=== PATIENT | male | born 1950 | race Caucasian/White ===

== ENCOUNTER 2020-08-29 11:49 | Outpatient (CLI) | payer MEDICARE, SELFPAY ==
--- NOTE | ~2020-08-29 | XR_ITS ---
XR_CERV2-3V_CR DATE: 08/29/2020 12:11 INDICATION: Neck pain. Limited range of motion. TECHNIQUE: AP, open-mouth, lateral views COMPARISON: None FINDINGS: There is straightening of the cervical spine. C1 and C2 are normally aligned and the odontoid process is intact. No fracture or dislocation, locked facet or prevertebral soft tissue swelling. There is severe degenerative disc disease at C6-7. The remaining cervical interspaces are well preser candace. IMPRESSION: Straightening Severe degenerative disc disease at C6-7 Reviewed, dictated and finalized at [facility]. Reviewed, dictated and finalized at location B.
== END 2020-08-29 11:50 | disposition home or self-care (01) ==
LOC: CHSIMG 11:51
PROVIDERS: PCP Internal Medicine; Visit Provider Internal Medicine
DX: M54.2 Cervicalgia (principal)
CPT/HCPCS: 72040

== ENCOUNTER 2020-09-08 07:37 | Outpatient (CLI) | payer MEDICARE, SELFPAY ==
--- NOTE | ~2020-09-08 | MR_ITS ---
EXAMINATION: MR cervical spine wo con EXAM DATE: 09/08/2020 08:24 INDICATION: Cervicalgia. TECHNIQUE: Multi-sequential, multiplanar MR images of the cervical spine were obtained without contra st. Axial T2, axial T2 MERGE sequence. Sagittal T1, T2, T2 fat saturation images also obtained. Com parison is made to prior examination from 02/12/2019. FINDINGS: Significant improvement in previously seen numerous bone marrow lesions, probably followin g treatment for hematological malignancy, clinical correlation. There is moderate disc disease at C6- 7, mild disc disease at other cervical levels. The vertebral bodies are aligned in the AP dimension. The spinal cord signal intensity and intrinsic morphology is normal. Cervicomedullary junction is nor mal in appearance. Paraspinal soft tissue is unremarkable. Level by level evaluation: C2-C3: Disc does not extend beyond the endplate margin. Uncovertebral joint arthropathy: None. Facet joint arthropathy: Moderate left, mild right. Neural foraminal stenosis: No stenosis. Central canal stenosis: No stenosis. C3-C4: Disc does not extend beyond the endplate margin. Uncovertebral joint arthropathy: Mild bilateral. Facet joint arthropathy: Moderate left, mild to moderate right. Neural foraminal stenosis: Mild bilateral. Central canal stenosis: No stenosis. C4-C5: There is a mild to moderate diffuse disc bulge. Uncovertebral joint arthropathy: Mild bilateral. Facet joint arthropathy: Moderate bilateral. Neural foraminal stenosis: Mild bilateral. Central canal stenosis: Mild . Central canal measures 6-7 mm in mid sagittal AP diameter . C5-C6: There is a mild diffuse disc bulge. Uncovertebral joint arthropathy: Mild bilateral. Facet joint arthropathy: Moderate bilateral. Neural foraminal stenosis: Mild left. Central canal stenosis: Mild. C6-C7: There is a mild diffuse disc bulge. Uncovertebral joint arthropathy: Moderate bilateral. Facet joint arthropathy: Mild bilateral. Neural foraminal stenosis: Moderate left, mild to moderate right. Central canal stenosis: Mild. C7-T1: There is a mild diffuse disc bulge. Uncovertebral joint arthropathy: Mild bilateral. Facet joint arthropathy: Mild to moderate left, mild right. Neural foraminal stenosis: No stenosis. Central canal stenosis: Mild. IMPRESSION: 1. C6-7 moderate left neural foraminal stenosis. Otherwise overall mild to moderate spondylosis. 2. Significant interval improvement in previously seen bone marrow lesions. Reviewed, dictated and finalized at location A. IMPRESSION: 1. C6-7 moderate left neural foraminal stenosis. Otherwise overall mild to mod erate spondylosis. 2. Significant interval improvement in previously seen bone marrow lesions.
== END 2020-09-08 07:38 | disposition home or self-care (01) ==
LOC: CHSIMG 07:38
PROVIDERS: PCP Internal Medicine; Visit Provider Internal Medicine
DX: M54.2 Cervicalgia (principal); C90.00 Multiple myeloma not having achieved remission
CPT/HCPCS: 72141

== ENCOUNTER 2020-09-12 08:48 | Outpatient (RCR) | payer MEDICARE, SELFPAY ==
--- NOTE | 2020-09-12 10:08 | PTOPEVAL ---
Thank you for referring Mikey Melendez to [facility].? The patient is scheduled to be seen for therapy? __2__x/week for 8 visits. Please review, sign, date and return this plan of care LI. I agree with and certify that the following plan of care is medically necessary. Referring Physician Date Admitting Provider: Attending Provider: Brook Walton MD Referring Provider: *PT Outpatient Evaluation Start: 09/12/20 09:04 Freq: Status: Active Protocol: Document 09/12/20 09:05 GIOVANNY (Rec: 09/12/20 10:07 GIOVANNY [id number]) Therapy Assessment Status Assessment Status Assessment Status Evaluation Evaluation Information Problem Subjective Information Pt. reports that he developed Query Text:As Reported By Patient/ pain on the right side of the Family neck about 4 months ago. Pt. states that the pain has not improved and has slightly worsened since initial pain. He reports that pain is most problematic with driving, espeically with turning the head to the right. He states that he purchased an orthopedic pillow and sleep has improved since. He reports that he does experience occassional headaches. He reports that his goal is to increase his neck movement and reduce pain. Diagnostic Tests X-Rays For This Problem Yes: C6-7 spondylosis MRI For This Problem Yes: C6-7 Prior Level of Function Activity Level (Last 3 Months) Occupation retired Hand Dominance Left Activity of Daily Living Ability Independent Indoor/Home Mobility Independent Community Mobility Independent Stairs Ability Independent Functional Cognition (Planning, Shopping Independent , Taking Medications) Cooking Yes Cleaning Yes Laundry Yes Shopping Yes Driving Yes Pain Assessment Timing of Pain Assessment Timing of Pain Assessment Pre-Treatment Pain Scale Pain Scale Used Numeric (1 - 10) Self Report Pain Assessment Right Neck Reported Pain Level 3 Pain Description Aching,Numbness Pain Radiation Right Arm Pain Frequency Continuous Pain Aggravating Factors Exercise/Activity Other Pain Aggravating Factors
--- NOTE | 2020-10-01 09:53 | PTOPEVAL ---
Thank you for referring Mikey Melendez to [facility].? The patient is scheduled to be seen for therapy? __2__x/week for 6 visits. Please review, sign, date and return this plan of care LI. I agree with and certify that the following plan of care is medically necessary. Referring Physician Date Admitting Provider: Attending Provider: Brook Walton MD Referring Provider: *PT Outpatient Evaluation Start: 09/12/20 09:04 Freq: Status: Active Protocol: Document 10/01/20 09:00 GARCIAPHIL (Rec: 10/01/20 09:52 GARCIAMARCO ANTONIOAhsan [email or web address]) Therapy Assessment Status Assessment Status Assessment Status Progress Evaluation Information Problem Diagnosis DJD c-spine, neck pain Subjective Information Pt. notices that his ROM has Query Text:As Reported By Patient/ improved since beginning Family therapy. He reports having a headache today, which he relates to sinuses. He reports Thursday he attempted to lift a ice chest to help a friend move that caused some increase in neck pain. He reports that looking over the shoulder while driving has improved, but still notices turining the head to the right is more difficult than to the left. He reports that he would like to continue with PT to help continue to improve mobility in the neck and decrease pain. Pain Assessment Timing of Pain Assessment Timing of Pain Assessment Pre-Treatment Pain Scale Pain Scale Used Numeric (1 - 10) Self Report Pain Assessment Right Neck Reported Pain Level 2 Pain Description Aching Greatest Pain Intensity 3 Pain Aggravating Factors Exercise/Activity Other Pain Aggravating Factors turning the head to the right Pain Score Pain Score 2: Self Report Interventions Used Interventions Used By Clinicians Electrical Stimulation, Exercise,Heat Cervical and Lumbar ROM Cervical ROM Cervical Lateral Flexion Right (0-50) 17 Query Text:Active in Degrees Cervical Lateral Flexion Left (0-50) 15 Query Text:Active in Degrees Cervical Rotation Right (0-90) 52 Query Text:Active in Degrees Cervical Rotation Left (0-90) 55 Query Text:Active in Degrees Upper Extremity Muscle Strength Testing General Upper Extremity Strength Gross Upper Extremity Strength Comments -bilateral momo
--- NOTE | 2020-10-17 11:19 | PTOPEVAL ---
Thank you for referring Mikey Melendez to [facility].? The patient is scheduled to be seen for therapy? ____x/week for ___ weeks. Please review, sign, date and return this plan of care LI. I agree with and certify that the following plan of care is medically necessary. Referring Physician Date Admitting Provider: Attending Provider: Brook Walton MD Referring Provider: *PT Outpatient Evaluation Start: 09/12/20 09:04 Freq: Status: Active Protocol: Document 10/17/20 10:00 [facility] (Rec: 10/17/20 11:17 [facility] [email or web address]) Therapy Assessment Status Assessment Status Assessment Status Discharge Evaluation Information Problem Diagnosis DJD c-spine, neck pain Additional Evaluation Detail ndi = 16% functional deficits Subjective Information patient reports he feels good Query Text:As Reported By Patient/ this date. he reports he has Family been compliant with his HEP at home. he reports he has had no more than 2/10 pain at worst in over a week. he reports he is back to participating in all home and community activities without limitation. he reports he has even gotten back to playing saxaphone at home. Pain Assessment Timing of Pain Assessment Timing of Pain Assessment Assessment Pain Scale Pain Scale Used Numeric (1 - 10) Self Report Pain Assessment Right Neck Reported Pain Level 2 Greatest Pain Intensity 2 Pain Score Pain Score 2: Self Report Interventions Used Interventions Used By Clinicians Electrical Stimulation, Exercise,Heat Cervical and Lumbar ROM Cervical ROM Cervical Lateral Flexion Right (0-50) 18 Query Text:Active in Degrees Cervical Lateral Flexion Left (0-50) 20 Query Text:Active in Degrees Cervical Rotation Right (0-90) 55 Query Text:Active in Degrees Cervical Rotation Left (0-90) 58 Query Text:Active in Degrees Upper Extremity Range of Motion General Upper Extremity Range of Motion Reason Not Measured WFL/Left,WFL/Right Upper Extremity Muscle Strength Testing General Upper Extremity Strength Gross Upper Extremity Strength Comments 5/5 overall bilateral shoulder and elbow strength General Exercise General Exercises Exercise Description -prom cervical mobility 10 Query Text:Record Sets, Reps, minutes Resistance, and Position -re-evaluation 5 minutes Modalities Electrical Stimulation Neck Stimulation Type Interferential Treatment Duration (minutes) 15 In Conjun
== END 2020-10-17 15:05 | disposition home or self-care (01) ==
LOC: CHSPT 08:48
PROVIDERS: PCP Internal Medicine; Visit Provider Internal Medicine
DX: M47.812 Spondylosis without myelopathy or radiculopathy, cervical region (principal); M54.2 Cervicalgia
CPT/HCPCS: 97014; 97110; 97140; 97161; G0283

== ENCOUNTER 2021-07-16 00:15 | Day surgery (SDC) | payer MEDICARE, SELFPAY ==
[2021-07-01 13:31] VITALS: BMI 26.4
--- NOTE | ~2021-07-16 | XR_ITS ---
EXAMINATION: XR UGIAC wo kub DATE: 07/16/2021 12:01 INDICATION: Hiatal hernia. TECHNIQUE: The patient drank thick barium, gas-producing crystals, and thin barium. Fluoroscopy of th e esophagus, stomach, and proximal small bowel was performed. Fluoroscopy exposure time was 0.7 minut es. The total number of images was 239. Total dose-area product was 2.413 Gy-cm^2. COMPARISON: CT 03/11/2019 FINDINGS: There is no mass or stricture of the esophagus. There is decreased primary and secondary es ophageal peristalsis. No abnormal tertiary waves. There is a large sliding hiatal hernia. The gastroe sophageal junction is 8 cm superior to the diaphragm. The duodenum is normal. There are changes of ve rtebroplasty in mid thoracic spine. IMPRESSION: 1. Large sliding hiatal hernia. 2. Moderate esophageal dysmotility. Reviewed, dictated and finalized at location A.
[2021-07-16 09:37] VITALS: BP 136/83; PULSE 52; RESP 18; TEMP 36.1; O2SAT 98; BMI 25.1
[2021-07-16] MEDS: LACTATED RINGERS 1,000 ML 150 ML IV CONT (09:47)
--- NOTE | 2021-07-16 10:13 | P.PNAN_ITS ---
Anes - Initial Pre Proc Eval Procedure: Operation Date: 07/16/21 11:00 Proposed Procedures p Esophagogastroduodenoscopy - Koby Gan MD Date/Time: 07/16/21 10:13 Surgeon: Koby Gan MD Pre Op Diagnosis: dysphagia Patient Data Age: 71 Gender: M Height: 1.88 m Weight: 88.7 kg Last Vital Signs Temp 36.1 C L 07/16/21 09:37 Pulse 52 L 07/16/21 09:37 Resp 18 07/16/21 09:37 BP 136/83 07/16/21 09:37 Pulse Ox 98 07/16/21 09:37 O2 Del Method Room Air 07/16/21 09:37 Allergies Allergy/AdvReac Type Severity Reaction Status Date / Time Iodinated Contrast Media Allergy Nausea Verified 07/16/21 09:36 shellfish derived Allergy Nausea and Verified 07/16/21 09:36 Vomiting Home Medications Medication Instructions Recorded Confirmed Type amlodipine 10 mg tablet 10 mg PO DAILY 07/01/21 07/01/21 History aspirin 81 mg tablet,delayed 81 mg PO DAILY 07/01/21 07/01/21 History release escitalopram oxalate 20 mg tablet 20 mg PO DAILY 07/01/21 07/01/21 History lenalidomide 10 mg capsule 10 mg PO DAILY 07/01/21 07/01/21 History (Revlimid) pantoprazole 40 mg tablet,delayed 40 mg PO QAM 07/01/21 07/01/21 History release Patient hx anesthesia problems: none Family hx anesthesia problems: none Results Review: All pre-operative results and documents have been reviewed as part of the pre- operative evaluation. [facility] Past Medical History Medical History (Updated 07/16/21 @ 10:21 by Rodrigo Gould MD) HTN (hypertension) Irregular heart beat Surgical History Surgical History (Updated 07/16/21 @ 10:21 by Rodrigo Gould MD) H/O hernia repair H/O stem cell transplant Social History Social History Living arrangements: alone Anes - Eval Final PreProcedure Day of Procedure 07/16/21 10:13 Patient weight: overweight Heart: irregular rhythm (trigeminy pattern) Lungs: clear to auscultation Airway: Mallampati scale class II Neurological: alert and oriented Last oral intake: >/= 8 hours ASA classification: III Emergent: no Anesthetic plan: proceed Anesthesia type and monitoring: general GIVS and standard monitoring Results Review: All pre-operative results and documents have been reviewed as part of the pre- operative evaluation. Informed Consent: The patient's anesthetic plan and its attendant risks and benefits were discussed with the patient/family/POA. Questions were solicited and answers provided to the satisfaction of the patient/family/POA.
--- NOTE | 2021-07-16 10:17 | P.CONGI_ITS ---
Assessment and Plan Assessment and plan (1) Dysphagia: Code(s): R13.10 - Dysphagia, unspecified Status: Acute Assessment and Plan: patient has increasing difficulty with dysphagia. He has noticed significant changes over last 1 month. Plans for EGD esophagus evaluate for esophageal narrowing. Possible for dilatation. Further recommendations will be given after endoscopy. Patient does give a history of GE reflux which likely contributes to his ongoing difficulties. (2) GERD (gastroesophageal reflux disease): Code(s): K21.9 - Gastro-esophageal reflux disease without esophagitis Status: Acute Assessment and Plan: Symptoms of GE reflux appears stable on pantoprazole 40mg p.o. daily. He no longer has heartburn while taking this medication. GI Consult Note Consult date/time: 07/16/21 10:17 Reason for consult: Dysphagia. HPI: Mikey Melendez is a 71 year old male Presents for EGD. Patient reports that he has had occasional difficulty swallowing with food catching in the mid substernal portion of the chest. This has happened over the last several years. Symptoms have worsened over last 1 month. He states that food will catch she is unable to swallow. Typically this is with larger pieces of food. Not with liquids. Patient does have a past history of GE reflux disease. He has been maintained on pantoprazole 40mg p.o. daily because of heartburn for several years. Patient presents today for EGD to evaluate difficulty swallowing. Past medical history is significant for multiple myeloma. He is status post a stem cell transplant several years ago at the [facility]. Currently felt to be in remission. Review of Systems Review of Systems: Review of systems noncontributory. FORMERLY [facility], 1928–1983 Social History Social History Living arrangements: alone Meds Home Medications and Allergies Home Medications Medication Instructions Recorded Confirmed Type amlodipine 10 mg tablet 10 mg PO DAILY 07/01/21 07/01/21 History aspirin 81 mg tablet,delayed 81 mg PO DAILY 07/01/21 07/01/21 History release escitalopram oxalate 20 mg tablet 20 mg PO DAILY 07/01/21 07/01/21 History lenalidomide 10 mg capsule 10 mg PO DAILY 07/01/21 07/01/21 History (Revlimid) pantoprazole 40 mg tablet,delayed 40 mg PO QAM 07/01/21 07/01/21 History release Allergies Allergy/AdvReac Type Severity Reaction Status Date / Time Iodinated Contrast Media Allergy Nausea Verified 07/16/21 09:36 shellfish derived Allergy Nausea and Verified 07/16/21 09:36 Vomiting Vital Signs Vital Signs - 24 hr 07/16/21 09:37 Temperature 96.9 F L Pulse Rate 52 L Respiratory Rate 18 Blood Pressure 136/83 Pulse Oximetry 98 Oxygen Delivery Room Air Exam Narrative: Physical exam reveals patient to be alert. Vital signs stable. HEENT exam is unremarkable. Patient is anicteric. Lungs are clear to auscultation and percussion. Heart is without murmur or extra sounds. Abdominal exam bowel sounds are present soft nontender with no organomegaly.
[2021-07-16] MEDS: BENZOCAINE (*SP) 60 ML SPRAY CAN (HURRICAINE) 1 SPRAY MUCOUS MEM (10:50)
[2021-07-16 11:01] VITALS: BP 98/64; PULSE 68; RESP 20; O2SAT 98
[2021-07-16 11:11] VITALS: BP 108/71; PULSE 72; RESP 20; O2SAT 98
[2021-07-16 11:21] VITALS: BP 117/73; PULSE 70; RESP 22; O2SAT 98
--- NOTE | 2021-07-16 11:27 | SUR.PHASEII ---
PT TAKEN TO RADIOLOGY AFTER RECOVERY, REPORT GIVEN TO YOLIE IN RADIOLOGY, SPOUSE WITH PT.
== END 2021-07-16 11:28 | disposition home or self-care (01) ==
PROVIDERS: PCP Internal Medicine; Visit Provider Internal Medicine Gastroenterology
PROC: 0DJ08ZZ Inspection of Upper Intestinal Tract, Via Natural or Artificial Opening Endoscopic (ICD-10-PCS; CPT 43235; principal; 2021-07-16 11:00)
DX: R13.19 Other dysphagia (principal); K21.9 Gastro-esophageal reflux disease without esophagitis; K44.9 Diaphragmatic hernia without obstruction or gangrene; Z79.82 Long term (current) use of aspirin; I10 Essential (primary) hypertension; I49.9 Cardiac arrhythmia, unspecified
CPT/HCPCS: 43235; 74246; J2704; J7120

== ENCOUNTER 2021-07-29 09:35 | Outpatient (CLI) | payer MEDICARE, SELFPAY ==
--- NOTE | 2021-08-12 08:13 | WPDHOLTEREM ---
Holter/Event Monitor Holter/Event Monitor Date of procedure: 08/12/21 Holter/Event Procedure: Event Monitor Indications: Palpitations Conclusion: 1. 7 day event monitor between 07/29/21-08/09/21. There are 16 available transmissions for analysis. 2. Predominant rhythm is sinus rhythm. HR range 39-146 bpm; average HR 67 bpm. HR at 39 bpm was on 08/03/21 at 07:21. 3. There are intermittent premature supraventricular complexes with total burden of 7%. There are 38 episodes of atrial fibrillation and possibly atrial tachycardia with total burden of 2%. The longest episode is 53 minutes, HR range 51-138 bpm with average of 96 bpm. 4. There are occasional premature ventricular complexes with total burden of 1%. No ventricular tachycardia. 5. No significant pauses greater than 2 seconds. 6. No symptoms available for correlation.
== END 2021-07-29 09:36 | disposition home or self-care (01) ==
PROVIDERS: PCP Internal Medicine; Visit Provider Internal Medicine
DX: I49.9 Cardiac arrhythmia, unspecified (principal)
CPT/HCPCS: 93270

== ENCOUNTER 2021-11-27 11:55 | Outpatient (CLI) | payer MEDICARE, SELFPAY ==
--- NOTE | ~2021-11-27 | XR_ITS ---
EXAMINATION: XR chest 2V DATE: 11/27/2021 12:22 INDICATION: Pneumonia. TECHNIQUE: Frontal and lateral views of the chest were obtained. COMPARISON: Chest 2 views 01/27/2019, chest CT 03/11/2019 FINDINGS: A calcified left lung nodule is consistent with old granulomatous disease. No pleural effus ion or pneumothorax. The heart size is normal. There is a large hiatal hernia. There are prominent pa racardial fat pads. There are changes of vertebroplasty in thoracic spine. IMPRESSION: 1. Large hiatal hernia. Reviewed, dictated and finalized at location A. IMPRESSION: 1. Large hiatal hernia.
[2021-11-27 12:17] LABS: Basophils Absolute Auto 0.02 K/mm3 (0.00-0.10); Basophils Percent Auto 0.5 % (0.0-1.0); Eosinophils Absolute Auto 0.36 K/mm3 (0.02-0.50); Eosinophils Percent Auto 8.5 % (1.0-6.0); Hemoglobin 14.8 g/dL (12.4-15.3); Immature Granulocyte Absolute 0.02 K/mm3 (0.00-0.00); Immature Granulocyte Percent A 0.5 % (0.0-0.0); Immature Reticulocyte Fraction 10.4 % (2.0-16.52); Lymphocytes Absolute Auto 0.89 K/mm3 (1.10-4.50); Mean Corpuscular HGB Conc 33.6 g/dL (32.0-36.0); Mean Corpuscular Hemoglobin 31.6 pg (27.0-31.0); Mean Platelet Volume 11.8 fl (8.7-11.0); Monocytes Absolute Auto 0.36 K/mm3 (0.10-0.90); Monocytes Percent Auto 8.5 % (2.0-11.0); Neutrophils Absolute Auto 2.6 K/mm3 (1.7-7.2); Platelet Count Result 110 K/mm3 (150-420); Red Blood Count 4.68 M/mm3 (4.70-6.10); Red Cell Distribution Width 14.7 % (11.6-14.4); Reticulocyte Hemoglobin Conten 37.2 pg (28.0-35.0); Reticulocyte Percent 1.48 % (0.50-1.50); Reticulocytes Absolute 0.07 M/mm3 (0.02-0.1); White Blood Count 4.2 K/mm3 (4.8-10.8)
[2021-11-27 12:44] LABS: Alanine Aminotransferase 23 U/L (16-63); Albumin Level 3.8 g/dL (3.4-5.0); Alkaline Phosphatase 78 U/L (46-116); Amylase 33 U/L (25-115); Anion Gap 9 mmol/L (8-16); Aspartate Amino Transferase 13 U/L (15-37); Bilirubin,Total 1.2 mg/dL (0.00-1.00); Blood Urea Nitrogen 14 mg/dL (7-18); Calcium 7.9 mg/dL (8.5-10.1); Carbon Dioxide 27 mmol/L (21-32); Chloride 105 mmol/L (98-108); Estimated Glomerular Filt Rate 44; Ferritin 135 ng/mL (26-388); Glucose 119 mg/dL (70-99); Iron 55 ug/dL (65-175); Lipase 47 U/L (73-393); Osmolality Calculated 293 mOsm/kg (285-295); Potassium 3.6 mmol/L (3.5-5.1); Sodium 141 mmol/L (136-145); Total Protein 7.3 g/dL (6.4-8.2)
== END 2021-11-27 11:56 | disposition home or self-care (01) ==
LOC: CHSLAB 11:57
PROVIDERS: PCP Internal Medicine; Visit Provider Internal Medicine
DX: R11.2 Nausea with vomiting, unspecified (principal); R19.7 Diarrhea, unspecified; K92.1 Melena; Z09 Encounter for follow-up examination after completed treatment for conditions other than malignant neoplasm; J18.9 Pneumonia, unspecified organism
CPT/HCPCS: 36415; 71046; 80053; 82150; 82728; 83540; 83690; 85025; 85046

== ENCOUNTER 2021-11-28 12:38 | Outpatient (CLI) | payer MEDICARE, SELFPAY ==
[2021-11-28 12:58] LABS: Occult Blood Negative (Negative)
== END 2021-11-28 12:39 | disposition home or self-care (01) ==
LOC: CHSLAB 12:40
PROVIDERS: PCP Internal Medicine; Visit Provider Internal Medicine
DX: R11.2 Nausea with vomiting, unspecified (principal); R19.7 Diarrhea, unspecified; K92.1 Melena
CPT/HCPCS: 82272; 87045; 87177; 87209; 87324; 87427

== ENCOUNTER 2024-11-02 09:50 | Outpatient (CLI) | payer MEDICARE, SELFPAY ==
[2024-11-02 10:10] LABS: Appearance Urine Clear (Clear); Glucose Urine UA Negative (Negative); Leukocyte Esterase Ur Negative (Negative); Nitrate Urine Negative (Negative); Specific Grav Ur 1.015 (1.010-1.020)
[2024-11-02 10:11] LABS: Hematocrit 41.8 % (37.0-46.0); Hemoglobin 13.9 g/dL (12.4-15.3); Mean Corpuscular HGB Conc 33.3 g/dL (32-36); Mean Corpuscular Hemoglobin 32.4 pg (27.0-31.0); Mean Corpuscular Volume 97.4 fL (78.0-102.0); Platelet Count Result 141 K/mm3 (150-420); Red Blood Count 4.29 M/mm3 (4.70-6.10); White Blood Count 4.5 K/mm3 (4.8-10.8)
[2024-11-02 10:22] LABS: Add Urine Microscopic? NO
[2024-11-02 10:25] LABS: Hemoglobin A1C 4.9 % (<5.7)
[2024-11-02 10:47] LABS: MALB Creatinine Ratio 6.1 mg/g (0-30)
[2024-11-02 10:53] LABS: Alanine Aminotransferase 24 U/L (6-50); Albumin Level 4.1 g/dL (3.5-5.1); Alkaline Phosphatase 75 U/L (38-126); Anion Gap 10 mmol/L (4-12); Aspartate Amino Transferase 28 U/L (17-59); Bilirubin,Total 0.8 mg/dL (0.2-1.3); Blood Urea Nitrogen 10 mg/dL (9-20); Calcium 9.3 mg/dL (8.4-10.2); Carbon Dioxide 27 mmol/L (22-30); Chloride 105 mmol/L (98-107); Cholesterol 175 mg/dL (0-200); Creatine Kinase 84 U/L (55-170); Estimated Glomerular Filt Rate 49; Glucose 98 mg/dL (65-110); HDL Direct 50 mg/dL; Iron 99 ug/dL (49-181); Magnesium 2.2 mg/dL (1.6-2.3); Osmolality Calculated 293 mOsm/kg (285-295); Potassium 3.9 mmol/L (3.4-5.0); Sodium 142 mmol/L (137-145); Total Protein 6.5 g/dL (6.3-8.2); Triglycerides 84 mg/dL (<150)
--- OUTSIDE RECORDS SUMMARY | 2024-11-02 11:01 | XMS_ITS ---
Author Organization [facility] Address [facility] [place] [address] Care Team Providers Care Bacon Slicer Name Role Phone Brook Walton MD Primary Care Provider [phone] Koby Joseph MD Unavailable [phone] Roddy Marroquin MD Unavailable [phone] Yared Walter MD Unavailable [phone] Steven Torres MD Unavailable [phone] Active Problems Patient Care Coordination No te Formatting of this note is d ifferent from the original. BMT Inpatient Care Coordination Overview Diagnosis MM Treatment Plan BMT/IEC/DCI Plan Melph auto cells 10/04 Clinical Trial Inpatient Floor Reason for Admission txp Transplant/IEC Planning Patient Education Completed Pre txp ed done Discharge ed done Consents Done IDMs Insurance Approvals/Issues Discharge Planning Anticipated Discharge Date 10/19 Issue to be Resolved Before Discharge Living Situation/Distance from [place], [place] 1 hour Discharge To Home Caregiver (Anny) Requests sent to Case Management and/or Medical Assistants Post-Discharge Followup/Local Care MAS Requested 10/26 or 10/27 Televisit Consent MyChart active Miscellaneous Notes: 10/16 Bld cx 10/11 (+), plan 2 weeks IV ceftriax @ discharge, cx pending from 10/12 Problem Noted Date Diagnosed Date Depression 11/15/2019 Erectile dysfunction 11/15/2019 Essential hypertension 11/15/2019 GERD (gastroesophageal reflux disease) 0 Hyperlipidemia 11/15/2019 Hypotestosteronism 11/15/2019 Obstructive sleep apnea 11/15/2019 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 Found to have lytic disease of spine on MRI. T5 vertebral body and bone marrow involvement. KRD x 4 cycles. Post treatment PET CT neg. Here for melph auto. Day 0: 10/05/19 , Today is day +15 OI ppx: acyclovir GI ppx: famotidine Pancytopenia secondary to chemotherapy: transfuse per BMT protocol. Neupogen on day +7-+13. Counts recovered. Anxiety Assessment & Plan (10/04/2019 10:09 AM CDT): -Escitalopram Current Treatment and Therapy Plans No current plan information found. Past Treatment and Therapy Plans BMT/ONC IP BLOOD PRODUCTS Plan Name Start Date Discontinue Date Treatment Medications Discontinue Reason Plan Provider COVID-19 - BMT (CMV POSITIVE) ADULT BLOOD AND PLATELET ADMINISTRATION FOR INPATIENT 10/13/2019 2023 No medications scheduled. Automatic discontinuation of dormant plans Eden Holbrook NP Oncology Chemotherapy Treatment Plan Name Start Date Discontinue Date Treatment Medications Discontinue Reason Plan Provider Cycles BMT - Standard Hematopoietic Progenitor Cell Mobilization (Auto) Standard GCSF and Plerixafor (Mozobil) 09/23/2019 10/12/2019 plerixafor (MOZOBIL) Therapy Complete Koby Joseph MD 1 of 1 cycle started Oncology Treatment (2) Plan Name Start Date Discontinue Date Treatment Medications Discontinue Reason Plan Provider Cycles INPT - Melphalan - BMT 10/03/2019 09/30/2021 melphalan (ALKERAN) IVPB in 250 mL Therapy Complete Koby Joseph MD 1 of 1 cycle started PHERESIS Plan Name Start Date Discontinue Date Treatment Medications Discontinue Reason Plan Provider APHERESIS CELLULAR THERAPY CELL COLLECTION 09/27/2019 10/07/2021 No medications scheduled. Therapy Complete Koby Joseph MD Lifetime Dose Tracking * Chemical Lifetime Dose Automatic Entry Manual Entr y Fluoro Time 5.1 minutes 5.1 minutes 0 minutes Air kerma at the reference point (Ka,r) 148.22 mGy 1 48.22 mGy 0 mGy Treatment Summaries Multiple myeloma* Images from the original note were not included. [address] [address] This Survivorship Care Plan is a cancer treatment summary and follow-up plan and is provided to youto keep with your health care records and to share with your primary care provider or any of your doctors and nurses. This summary is a brief record of major aspects of your transplant, not a detailed or comprehensiverecord of your care. We will continue to monitor your post-transplant status and help arrange follow-up care if applicable. You should review this with your cancer provider. Treatment Summary and Survivorship Care Plan for Bone Marrow Transplant General Information Patient name Mikey Melendez (home) Date of 1950 Health Care Providers (Including Names, Institutions) Provider Name: Contact Information: Referring Provider/ Medical Oncologist Roddy Marroquin MD [phone] Primary Care Physician Brook Walton MD [phone] BMT Physician/ Advanced Practice Provider Koby Joseph MD/ Ofelia Saavedra PA-C (Kari) [phone] Field Auditor Dotty Cronin RN [phone] Treatment Summary Cancer Diagnosis Information Multiple myeloma (CMS/HCC) 04/08/2019 Initial Diagnosis Multiple myeloma (CMS/HCC) Patient Active Problem List Diagnosis Multiple myeloma (CMS/HCC) Autologous donor of stem cells Diabetes type 2, controlled (CMS/HCC) Anxiety Depression Erectile dysfunction Essential hypertension GERD (gastroesophageal reflux disease) Hyperlipidemia Hypotestosteronism Obstructive sleep apnea Partial anterior cerebral circulation infarction (CMS/HCC) Seasonal affective disorder (CMS/HCC) Past Medical History: Diagnosis Date Allergic rhinitis Anxiety Arthritis Asthma Depression Diabetes mellitus (CMS/HCC) Gastric reflux Hiatal hernia Hypertension Migraines Pneumonia Sleep apnea CPAP Urinary tract infection Adverse Drug Reaction/Allergies Contrast dye [iodinated contrast media] and Shellfish containing products Family History Cancer Cancer-related family history is not on file. He was adopted. Genetic/hereditaryrisk factor(s) or predisposing condition: N/A Cancer Staging Cancer Staging Multiple myeloma (CMS/HCC) Staging form: Plasma Cell Myeloma and Plasma Cell Disorders, AJCC 8th Edition - Clinical stage from 2019: RISS Stage I (Yntr-2-guaedgyqudxwv (mg/L): 2.7, Albumin (g/dL): 4.9, ISS: Stage I, High-risk cytogenetics: Absent, LDH: Normal) - Signed by Ofelia Saavedra PA on 09/21/2019 Staging comments: Hyperdiploid karyotype, but no high risk cytogenetics. Systemic Therapy (chemotherapy, hormonal therapy, other) Oncology Diagnosis: Multiple myeloma - IgG kappa light chain / oligosectretory Lytic disease of spine on MRI. Biopsy of the T5 vertebral body revealed 90% plasma cell involvement. BM Biopsy with 30 - 40% plasma cells. Mild increase in kappa light chain to 9 but no monoclonal protein by SPEP. Cr 1.31. Normal LDH and albumin. Hyperdiploid karyotype, No evidence of deletion/monosomy of CDKN2C (1p), H84F104/LAMP1 (13q), or TP53 (17p); no evidence of IGH/FGFR3 OR IGH/MAF rearrangements. Oncology Treatment: T5 vertebroplasty 04/01/19. KRD induction x 4 cycles. Cycle 1 initiated 05/23/19. Cycle 4 initiated 08/15/19 with CR (BMBX withoutexcess plasma cells, +FISH, PET negative, SLC normal). Zometa, to continue for a total duration of 2 years. Given locally. Has been on hold for transplantand possible extraction (ultimately not needed). Ok to resume. HD melp ASCT. D0 on 10/05/2019. To begin maintenance therapy after Day 100. Will likely recommend Revlimid 10 mg daily. BMT - Standard Hematopoietic Progenitor Cell Mobilization (Auto) Standard GCSF and Plerixafor (Mozobil) Treatment goal [No plan goal] Status Inactive Start Date 09/23/2019 End Date 09/29/2019 Provider Koby Joseph MD Chemotherapy filgrastim (NEUPOGEN) subcutaneous injection 870 mcg, 10 mcg/kg = 870 mcg, subcutaneous, Once, 1 of 1 cycle Administration: 870 mcg (09/23/2019), 870 mcg (09/24/2019), 870 mcg (09/25/2019), 870 mcg (09/26/2019) INPT - Melphalan - BMT Treatment goal [No plan goal] Status Active Start Date 10/03/2019 End Date 10/12/2019 Provider Koby Joseph MD Chemotherapy melphalan (ALKERAN) 400 mg in sodium chloride 0.9% 250 mL IVPB, 405 mg, intravenous, Once, 1 of 1 cycle Administration: 400 mg (10/03/2019) filgrastim-sndz (ZARXIO) syringe 480 mcg, 480 mcg, subcutaneous, Every 24 hours, 1 of 1 cycle Administration: 480 mcg (10/12/2019), 480 mcg (10/13/2019), 480 mcg (10/14/2019), 480 mcg (10/15/2019),480 mcg (10/16/2019), 480 mcg (10/17/2019) Surgery Surgery date 04/01/2019 Surgical procedure / location / findings T5 vertebroplasty Radiation Radiation Treatments No radiation treatments to show. (Treatments may have been administered in another system.) Cellular Therapy & Transplant Date Transplant Type Source Conditioning Regimen 10/05/2019 HCT Type: autologous Donor Type: autologous INPT - MELPHALAN - BMT Transplant Comments: E.coli and Klebsiella bacteremia and tooth pain/possible abscess. Lab Results Lab Results Component Value Date [id number] 77 09/02/2019 DLCOPREPRED 57 09/02/2019 DLADJPREPRED 60 09/02/2019 WBC 8.2 01/06/2020 HGB 14.1 01/06/2020 LABPLAT 171 01/06/2020 NEUTROABS 5.8 01/06/2020 BUNSER 19 01/06/2020 CREATININE 1.16 01/06/2020 BILITOT 0.7 01/06/2020 ALKPHOS 62 01/06/2020 AST 19 01/06/2020 ALT 20 01/06/2020 Tumor Marker History Some values may be hidden. Unless noted otherwise, only the newest values recorded on each date aredisplayed. Tumor Markers Latest Ref Range 03/09/19 04/28/19 09/02/19 10/03/19 PSA <=5.40 ng/mL 1.87 Fibrinogen 170 - 400 mg/dL 384 Beta-2 Microglobulin, Serum 1.00 - 2.50 mg/L 2.70 (A) Immunoglobulin G 700.0 - 1,600.0 mg/dL 385.0 (A) 453.0 (A) Immunoglobulin A 70.0 - 400.0 mg/dL <50.0 (A) <50.0 (A) Immunoglobulin M 40.0 - 230.0 mg/dL <25.0 (A) <25.0 (A) [place]/Lambda light chains free with ratio 0.26 - 1.65 13.14 (A) 1.62 [place] light chain, free 0.33 - 1.94 mg/dL 9.72 (A) 1.26 Lambda light chain, free 0.57 - 2.63 mg/dL 0.74 0.78 Protein, sr 6.2 - 8.2 g/dL 6.7 7.1 6.0 (A) Albumin 3.2 - 5.0 g/dL 4.8 4.9 4.1 Alpha-1 Globulin 0.2 - 0.4 g/dL 0.3 0.3 0.3 Alpha-2 Globuliin 0.5 - 1.0 g/dL 0.6 0.7 0.6 Beta 1 globulin 0.3 - 0.6 g/dL 0.4 0.5 0.4 Beta-2 Globulin 0.2 - 0.6 g/dL 0.2 0.3 0.2 Gamma Globulin 0.5 - 1.7 g/dL 0.4 (A) 0.4 (A) 0.4 (A) SPE, interp Please see comment Please see comment Please see comment Immunofixation No monoclonal protein detected. No monoclonal protein detected. (A) Abnormal value Comments are available for some flowsheets but are not being displayed. Complications/Late Effects These are all symptoms/side effects that you could experience following an autologous stem cell transplant: low red blood cell count (anemia) low white blood cell count (neutropenia) tingling, numbness or pain in hands/feet (neuropathy) change in weight insomnia nausea/vomiting sexual problems buildup of fluid in arms, legs or neck (lymphedema) fatigue muscle/joint pain pain loss of appetite skin changes cardiac dysfunction pulmonary dysfunction cognitive difficulties emotional difficulties endocrine abnormalities infertility secondary malignancies Follow-up Care Plan Schedule of Follow-Up Visits and Tests Coordinating Provider Exam When/How often Primary Care Physician (PCP): Dr. Brook Walton History & physical and review of symptoms, vital signs including BP, lung exam including PFT (if applicable) Labs (CBC/diff, retic count, CMP, fasting glucose, fasting lipid profile, thyroid panel, PSA if applicable) Colonoscopy Yearly Based on personal and family history. Last in 2018 - next due in 2028. Bone Health: Dr. Roddy Marroquin Zometa For [address] Marroquin if you need dental extractions as Zometa will need to be held before and after Medical Oncologist: Dr. Roddy Marroquin Myeloma Treatment Myeloma labs at least every 3 months Monthly CBC & CMP on Revlimid BMT Physician: Dr. Koby Joseph Follow up appointment 1 year post transplant with PET scan. Then f/u yearly or as desired Dentist Dental exam Yearly, every 6 months if able Patient Self skin & genital exam Monthly Revaccination schedule post stem cell transplant: For auto: Begin 6 months post transplant No live vaccines for 2 years post transplant 6th month 8th month 12th month 15th month 24th month 27th month Ongoing Influenza Yearly Prevnar-13 x x x PPSV23 x Every 5 yrs DTaP x x Tdap x Hib x x x Hep B x x x Check Hep B surface Ab (goal >10) Shingrix Patient will likely decline this vaccine. x x Polio x x x MMR* Only if: no IVIG x 11 mo Check mumps, rubeola & rubella antibody IgG. x (if titers neg) x (if titers neg) For high risk patients (college student, , chronic GVHD) consider the following: Meningococcus (MCV4 = Menveo or Menactra) at 6 and 8 months Meningococcus (MenB = Bexsero) at 6 and 8 months Hepatitis A at 12 and 18 months Resources you may be interested in: [employer] Cancer Survivors Network Cancer Survivors Network is a vibrant community established by people just like you whose lives have been touched by cancer. We hope you'll find strength and inspiration from our personal stories, discussions and expressions of caring. http://csn.cancer.org Be the Match We provide support and resources for all patients, caregivers and familiars throughout the transplant process. You can turn to us for one-on-one support and educational resources to help you navigateyour transplant journey. https://bethematch.org National Cancer [place] Accurate, up-to-date, comprehensive cancer information from the U.S. government's principal agency for cancer research. http://www.cancer.gov Eating Hints?? Before, During, and After Cancer Treatment https://www.cancer.gov/publication/patient-education/eating-hints National Coalition for Cancer Survivorship We advocate for quality cancer care for all individuals touched by cancer. https://canceradvocacy.org National Heart, Lung and Blood [place] We provide helpful information and resources designed to help your family stay healthy. https://www.nhlbi.gov/health/educational/webcan/ [facility] A [place] [facility] http://www.[facility] Multiple Myeloma Research Foundation (MMR) Charitable organization dedicated to multiple myeloma. The MMRF provides resources to connect patients with the people, institutions, treatments, and clinical trials they need. https://themmrf.org/ International Myeloma Foundation (IMF) The IMF is dedicated to improving the quality of life of myeloma patients while working toward prevention and a cure through four founding principles: Research, Education, Support, and Advocacy. https://www.myeloma.org/ Myeloma Crowd The Myeloma Crowd is a division of the [employer], a patient-driven, nonprofit organization that empowers patients with rare diseases at each step of her disease journey--from diagnosis, through Education, care and on to a cure. https://www.myelomacrowd.org/ Resolved Problems Problem Noted Date Diagnosed Date Resolved Date Orthostatic hypotension 10/20/2019 09/0 05/2019 Assessment & Plan (10/20/2019 12:34 PM CDT): -NS bolus x 1 Neutropenic fever 10/13/2019 10/28/2019 Assessment & Plan (10/22/2019 8:24 AM CDT): 1st fever spike--38.8 on 10/12. Recurrent fever 10/17 38.3 - CXR neg - Bcx + GNB on 10/11--> 1/2 E coli, 1/2 klebsiella, mcclain-sensitive. Surveillance Cx (10/12) NGTD. All repeat BCx have been negative -On Elda (10/11-)-> deescalate to cefe (10/15- 10/15) based on susceptibilities-->Ceftriaxone in preparation for discharge (10/16-10/18)--> Changed to Cipro IV for recurrent fever (10/18-10/20)-->Cipro to po through 10/25. Tooth pain 10/12/2019 11/15/2019 Assessment & Plan (10/21/2019 11:04 AM CDT): -Pain resolved -Panorex 10/11 with lucency in the right second mandibular molar adjacent to the root; abscess? -Elda for possible dental infection-->now on Cipro Chemotherapy induced diarrhea 10/11/2019 10/28/2019 Assessment & Plan (10/19/2019 11:54 AM CDT): -cdiff neg 10/08, repeat neg -Imodium scheduled (10/16-10/18) CINV (chemotherapy-induced n ausea and vomiting) 10/08/2019 10/28/2019 Assessment & Plan (10/20/2019 12:34 PM CDT): - schedule Prochlorperazine (10/11-10/19), now prn - reports Zofran and Lorazepam does not control N/V - Persistent N/V, add Zyprexa (10/13-10/19), QTc 465 Sinus pressure 10/08/2019 Assessment & Plan (10/06/2019 11:58 AM CDT): -sinus pressure/pain on admit -continues to improve/resolved -will continue to monitor
--- OUTSIDE RECORDS SUMMARY | 2024-11-02 11:01 | XMS_ITS | Encounter Summary ---
Author Organization [facility] Address [address] [place] [address] Phone Care Team Providers Care Automatic Profile Shaper Operator Name Role Phone Brook Walton MD Primary Care Provider [phone] Koby Joseph MD Unavailable [phone] Roddy Marroquin MD Unavailable [phone] Yared Walter MD Unavailable [phone] Steven Torres MD Unavailable [phone] Encounter Details Date Type Department Care Team (Latest Contact Info) Description 08/29/2020 Orders Only [facility] Scanning, Provider Social History Tobacco Use Types Packs/Day Years Used Date Smoking Tobacco: Never Smokeless Tobacco: Never Alcohol Use Standard Drinks/Week Comments Yes 0 (1 standard drink = 0.6 oz pur e alcohol) Sex and Gender Information Value Date Recorded Sex Assigned at Not on file Legal Sex Male 2:03 PM CDT Gender Identity Not on file Sexual Orientation Not on file documented as of this encounter Plan of Treatment Not on file documented as of this encounter Procedures Procedure Name Priority Date/Time Associated Diagnosis Comments SCAN - RADIOLOGY/IMAGING 08/29/2020 documented in this encounter Results * SCAN - RADIOLOGY/IMAGING (08/29/2020) Anatomical Region Laterality Modality Other us Provider Scanning Edited Result - Final documented in this encounter Visit Diagnoses Not on filedocumented in this encounter Care Teams Automatic Profile Shaper Operator Relationship Specialty Start Date End Date Brook Walton MD [address] [place] [address] PCP - General Internal Medicine 02/14/19 Koby Joseph MD [address] [place] [address] Medical Oncologist/Tube Depatcher Medical Oncology 08/31/19 Roddy Marroquin MD [address] [place] [address] Referring Physician Hematology 09/23/19 Yared Walter MD [address] [place] [address] Surgeon Orthopedic Surgery 09/23/19 Steven Torres MD [address] [address] Referring Physician Gastroenterology 09/27/24 documented as of this encounter
--- OUTSIDE RECORDS SUMMARY | 2024-11-02 11:01 | XMS_ITS | Clinical Summary ---
Author Organization [facility] Address [facility] [place] [address] Care Team Providers Care Tunnel Inspector Name Role Phone Borok Walton MD Primary Care Provider [phone] Koby Joseph MD Unavailable [phone] Roddy Marroquin MD Unavailable [phone] Yared Walter MD Unavailable [phone] Steven Torres MD Unavailable [phone] Allergies Active Allergy Reactions Criticality Noted Date Comments Iodinated Contrast Media Hives,Swelling, Nausea & Vomiting Medium 10/06/2019 Shellfish Containing Products Hives,Swelling,Nausea & Vomiting Medium 03/09/2019 Medications LORazepam (ATIVAN) 0.5 mg tabletIndications: anxiety Take 1 tablet (0.5 mg total) by mouth nightly as needed for anxiety 30 tablet 0 Active dicyclomine (BENTYL) 10 mg capsule Take 1 capsule (10 mg total) by mouth 4 (four) times a day as needed (abdominal cramping) 0 Active escitalopram (LEXAPRO) 20 mg tablet Take 1 tablet (20 mg total) by mouth daily [address] (PROTONIX) 40 mg EC tabletIndications: Cancer Chemotherapy-Induc ed Nausea and Vomiting Take 1 tablet (40 mg total) by mouth daily 30 tablet 11 0 Active multivitamin,tx-mi nerals tabletIndications: Multiple myeloma in remission (HCC) Take 1 tablet by mouth daily Active cyclobenzaprine (FLEXERIL) 10 mg tabletIndications: Multiple myeloma in remission (HCC) TAKE 1/2 TO 1 TABLET BY MOUTH THREE TIMES DAILY NEEDED 1 Active lenalidomide (REVLIMID) 5 mg capsuleIndications :Multiple myeloma in remission (HCC) Take 1 capsule (5 mg total) by mouth daily 1 Active amLODIPine (NORVASC) 10 mg tabletIndications: Multiple myeloma in remission (HCC) 2 Active Eliquis 5 mg tabletIndications: Multiple myeloma in remission (HCC) 2 Active metoprolol XL (TOPROL-XL) 25 mg extended release tabletIndications: Multiple myeloma in remission (HCC) Take 0.5 tablets (12.5 mg total) by mouth daily Active levocetirizine (XYZAL) 5 mg tabletIndications: Multiple myeloma in remission (HCC) Take 1 tablet by mouth nightly Active potassium chloride ER 10 mEq CR tabletIndications: Multiple myeloma in remission (HCC) 2 Active sulfaSALAzine (AZULFIDINE) 500 mg tabletIndications: Inflammatory bowel diseases (IBD) Take 2 tablets (1,000 mg total) by mouth 2 (two) times a day Active pancrelipase (CREON) 3,000 units of lipase capsuleIndications :exocrine pancreatic insufficiency Take 1-2 capsules by mouth as needed (with greasy meals) Active Active Problems Patient Care Coordination No te Formatting of this note is d ifferent from the original. BMT Inpatient Care Coordination Overview Diagnosis MM Treatment Plan BMT/IEC/DCI Plan Melph auto cells 10/04 Clinical Trial Inpatient Floor Reason for Admission txp Transplant/IEC Planning Patient Education Completed Pre txp ed done Discharge ed done Consents Done IDAk Insurance Approvals/Issues Discharge Planning Anticipated Discharge Date 10/19 Issue to be Resolved Before Discharge Living Situation/Distance from [place], [place] 1 hour Discharge To Home Caregiver [...] 04/08/2019 Cancer Staging:Clinical stage from 2019:RISS Stage I(Pfqm-9-amwxhrwxdytqf (mg/L): 2.7, Albumin (g/dL): 4.9, ISS: Stage [...] & Plan (10/04/2019 10:09 AM CDT): -Escitalopram Resolved Problems Problem Noted Date Diagnosed Date Resolved Date Orthostatic hypotension 10/20/2019 090 05/2019 Assessment & Plan (10/20/2019 12:34 PM CDT): -NS bolus x 1 Neutropenic fever 10/13/2019 10/28/2019 Assessment & Plan (10/22/2019 8:24 AM CDT): 1st fever spike--38.8 on 10/12. Recurrent fever 10/17 38.3 - CXR neg - Bcx + GNB on 10/11--> 1/2 E coli, 1/2 klebsiella, mcclain-sensitive. Surveillance Cx (10/12) NGTD. All repeat BCx have been negative -On Elda (8/)-> deescalate to cefe (10/15- 10/15) based on [...] -continues to improve/resolved -will continue to monitor Encounters Date Type Department Care Team Description 09/27/2024 2:00 PM CDT Office Visit [facility] Medicine Bone Marrow Transplant [address] [place] [address] [address] [place] [address] Ofelia Saavedra PA Multiple myeloma in remission (HCC) (Primary Dx); Inflammatory bowel diseases (IBD) 09/27/2024 1:00 PM CDT Lab [facility] Medicine Oncology Lab [address] [place] [address] [address] [place] [address] Multiple myeloma in remission (HCC) 09/27/2024 11:30 AM CDT Clinical Support [facility] [place] - Lab Collection [address] [place] [address] Multiple myeloma in remission (HCC) 09/27/2024 9:36 AM CDT - 09/27/2024 11:59 PM CDT Hospital Encounter [facility] - PET [address] [place] [address] Discharge Disposition: Discharge to home or self care 09/27/2024 9:35 AM CDT - 09/27/2024 11:59 PM CDT Hospital Encounter [facility] [place] - PET [address] [place] [address] Multiple myeloma in remission (HCC) Discharge Disposition: Discharge to home or self care 09/27/2024 Results Follow-Up [facility] Medicine Bone Marrow Transplant [address] [place] [phone] Ofelia Saavedra PA Immunoglobulin free light chains from Last 3 Months Immunizations Immunization Administration Dates Next Due COVID-19 MRNA (MODERNA) .5 M L (50 MCG) VACCINE (12 YEARS AND UP) 02/06/2023 DTaP / IPV 11/19/2020,08/29/2020 Influenza Virus Vaccine Trivalent Mdv 02/20/2024 Influenza, Quad, Adjuvantate d, Intramuscular 10/23/2022 Influenza, Quadrivalent, Spl it, Intramuscular 11/24/2017,12/22/2016 Influenza, Quadrivalent, Spl it, Preservative Free, Intramuscular 12/06/2021,11/19/2020,11/30/2019,12/15 Pneumococcal Conjugate PCV 13 08/29/2020, 020 Pneumococcal Polysaccharide PPV23 08/25/2018,02/2009 RSV Vaccine, Pref, Recombina nt, Subunit, Adjuvanted, PF, IM (Arexvy) 02/06/2023 Tdap 01/30/2012 ZOSTER LIVE 03/19/2013 ZOSTER Recombinant 11/19/2020,,11/05/2018,08/26 Surgical History Surgery Date Site/Laterality Comments HERNIA REPAIR TONSILLECTOMY 02/16/1959 - 02/16/1960 STRABISMUS SURGERY 02/16/2017 - 02/15/2018 KYPHOPLASTY THORACIC 04/01/2019 N/A TUNNELED LINE PLACEMENT > 5 YEARS 09/26/2019 N/A REMOVE TUNNELED LINE 10/28/2019 Left Medical History Medical History Date Comments Anxiety Arthritis Asthma Depression Diabetes mellitus (HCC) Urinary tract infection Allergic rhinitis Migraines Gastric reflux Hiatal hernia Hypertension Pneumonia Sleep apnea CPAP Family History * Patient is adopted Medical History Relation Name Comments Seizures Brother Seizures Daughter Alcohol abuse Mother Heart disease Mother Mental illness Mother Relation Name Status Comments Brother Daughter Mother Social History Tobacco Use Types Packs/Day Years Used Date Smoking Tobacco: Never Smokeless Tobacco: Never Alcohol Use Standard Drinks/Week Comments Yes 0 (1 standard drink = 0.6 oz pur e alcohol) Sex and Gender Information Value Date Recorded Sex Assigned at Not on file Legal Sex Male 2:03 PM CDT Gender Identity Not on file Sexual Orientation Not on file Obstetrics History Last Filed Vital Signs Vital Sign Reading Time Taken Comments Blood Pressure 135/79 09/27/2024 12:45 PM CDT Pulse 96 09/27/2024 12:45 PM CDT Temperature 36.4 C (97.6 F) 09/27/2024 12:45 PM CDT Respiratory Rate 18 09/27/2024 12:45 PM CDT Oxygen Saturation 97% 09/27/2024 12:45 PM CDT Inhaled Oxygen Concentration - - Weight 88.9 kg (196 lb) 09/27/2024 12:45 PM CDT Height 185.4 cm (6' 0.99) 10/02/2023 1:43 PM CD T Body Mass Index 25.86 10/02/2023 1:43 PM CDT Plan of Treatment Health Maintenance Due Date Last Done Comments Albumin Creatinine Ratio, Urine 1952 Colon Cancer Screening-Colonoscopy 1950 Depression Screening 1952 Hepatitis C Screening 1952 Dilated Eye Exam 1952 Foot Exam 1952 Hepatitis B Screening 1970 Well Visit 65+ 2017 Hemoglobin A1C 03/04/2020 09/02/2019, 2019 Fall Risk Assessment 10/27/2020 10/28/2019 Lipid Panel 03/11/2024 03/11/2023, 08/16, 2019 Covid-19 Vaccine (2024-2 6 season) 2024 02/06/2023, 01/02/2022, 06/28/2021, Additional history exists Influenza Vaccine (#1) 2024 , 10/23/2022, 12/06/2021, Additional history exists eGFR 09/27/2025 09/27/2024, 09/16, 10/03/2022, Additional history exists DTaP/Tdap/Td Vaccine (4 - Td or Tdap) 11/19/2030 11/19/2020, 08/29/2020, 01/30/2012 Prostate Cancer Screening-PSA Discontinued 03/09/2019 Pneumococcal vaccine 65+ Completed 021, 05/04/2019, 08/25/2018, Additional history exists Zoster Vaccine Completed 11/19/2020, 08/16, 11/05/2018, Additional history exists Medical Devices Implanted Type Area Tie Maker Device Identifier Shelf Expiration Date Model / Serial / Lot [employer] [id number] Vertaplex Hv Autoplex Without Needle Delivery System Kit Bone - [id number] Implanted:Qty: 1 on 04/01/2019 at [facility] [employer] [id number] 01/15/2021 [id number] / / [id number] Procedures Procedure Name Priority Date/Time Associated Diagnosis Comments EGFR Routine 09/27/2024 11:26 AM CDT Multiple myeloma in remission (HCC) DIFFERENTIAL AUTO Routine 09/27/2024 11: 26 AM CDT Multiple myeloma in remission (HCC) CBC WITH AUTO DIFFERENTIAL Routine 09/27/2024 11:26 AM CDT Multiple myeloma in remission (HCC) COMPREHENSIVE METABOLIC PANEL Routine 09/27/2024 11:26 AM CDT Multiple myeloma in remission (HCC) IGA Routine 09/27/2024 11:26 AM CDT Multiple myeloma in remission (HCC) IGG Routine 09/27/2024 11:26 AM CDT Multiple myeloma in remission (HCC) IGM Routine 09/27/2024 11:26 AM CDT Multiple myeloma in remission (HCC) IMMUNOGLOBULIN FREE LIGHT CHAINS Routine 09/27/2024 11:26 AM CDT Multiple myeloma in remission (HCC) LACTATE DEHYDROGENASE Routine 09/27/2024 11:26 AM CDT Multiple myeloma in remission (HCC) PROTEIN ELECTROPHORESIS, WITH REFLEX, SERUM Routine 09/27/2024 11:26 AM CDT Multiple myeloma in remission (HCC) IMMUNOTYPING Routine 09/27/2024 11:26 AM CDT Multiple myeloma in remission (HCC) PET/CT FDG SKULL TO THIGH Schedule Routine, Read Routine (OP Routine) 09/27/2024 11:21 AM CDT Multiple myeloma in remission (HCC) HEMOGLOBIN A1C Routine 09/02/2019 10:59 AM CDT Multiple myeloma (HCC) LIPID PANEL Routine 09/02/2019 10:56 AM CDT Multiple myeloma (HCC) PSA DIAGNOSTIC Routine 03/09/2019 12:45 PM PRODUCTION LEADER Metastatic cancer to spine (HCC) from Last 3 Months or Most Recently Relevant to Health Maintenance Results * Immunotyping, serum with interpretation (09/27/2024 11:26 AM CDT) Immunosubtraction Please see comment Comment: NO PARAPROTEIN DETECTED Reviewed and signed by Jhonny Edwards MD, PhD 09/28/2024 Blood 09/27/2024 11:2 6 AM CDT 09/27/2024 12:21 PM CDT us Koby Joseph MD LAB BLOOD ORDERABLES Fi nal Result Performing Organization Address City/State/[facility] de Phone Number [facility]I [facility] Department [place] [address] * (ABNORMAL) eGFR (09/27/2024 11:26 AM CDT) eGFR 47(L) >=60 mL/min/1. 73 m2 Comment: Interpretive Data Reference Interval Normal >/= 90 mL/min/1.73m2 Mildly decreased* 60 - 89 mL/min/1.73m2 Mildly to moderately decreased 45 - 59 mL/min/1.73m2 Moderately to severely decreased 30 - 44 mL/min/1.73m2 Severely decreased 15 - 29 mL/min/1.73m2 Kidney Failure < 15 mL/min/1.73m2 *Relative to young adult level Estimated glomerular filtration rate is determined by the 2020 CKD-EPI equation recommended by the National Kidney Foundation (A Unifying Approach to GFR Estimation: Recommendations of the NKF-ASK Task Force on Reassessing the Inclusion of Race in Diagnosing Kidney Disease, JASN 2020). The CKD-EPI equation should not be used for patients with unstable renal function and has not been validated in children and those over 70. Current interpretive data was last reviewed 2020. Blood 09/27/2024 11:2 6 AM CDT 09/27/2024 11:33 AM CDT Koby Joseph MD LAB BLOOD ORDERABLES Fi nal Result Performing Organization Address [facility] de Phone Number [facility] Department [place] [address] * Differential, auto (09/27/2024 11:26 AM CDT) Neutrophil abs 2.07 1.50 - 6.50 K/cumm Comment:Testing performed by : [facility] Heme Lab, [address] [place] [phone] Lymphocyte abs 1.54 0.80 - 3.30 K/cumm [facility] Comment:Testing performed by : Amb[facility] Heme [facility], [address] [place] [phone] Monocyte abs 0.57 0.20 - 0.80 K/cumm [facility] Comment:Testing performed by : [facility], [facility] [place] [address] Eosinophil abs 0.15 0.00 - 0.50 K/cumm [facility] Comment:Testing performed by : [facility], [address] [place] [phone] Basophil abs 0.06 0.00 - 0.10 K/cumm [facility] Comment:Testing performed by : [facility], [address] [place] [phone] Neutrophil pct 47.2 % [facility] Comment: Interpretive Data Percent cell count reference ranges are not reported, since discordance with absolute values may lead to misinterpretation of CBC data. Current Interpretive Data was last revised on 2017. Testing performed by: [facility], [address] [place] [phone] Lymphocyte pct 35.0 % [facility] Comment: Interpretive Data Percent cell count reference ranges are not reported, since discordance with absolute values may lead to misinterpretation of CBC data. Current Interpretive Data was last revised on 2017. Testing performed by: [facility], [address] [place] [phone] Monocyte pct 12.9 % [facility] Comment: Interpretive Data Percent cell count reference ranges are not reported, since discordance with absolute values may lead to misinterpretation of CBC data. Current Interpretive Data was last revised on 2017. Testing performed by: [facility], [address] [place] [phone] Eosinophil pct 3.5 % [facility] Comment: Interpretive Data Percent cell count reference ranges are not reported, since discordance with absolute values may lead to misinterpretation of CBC data. Current Interpretive Data was last revised on 2017. Testing performed by: [facility], [address] [place] [phone] Basophil pct 1.4 % [facility] Comment: Interpretive Data Percent cell count reference ranges are not reported, since discordance with absolute values may lead to misinterpretation of CBC data. Current Interpretive Data was last revised on 2017. Testing performed by: [facility], [address] [place] [phone] Blood 09/27/2024 11:2 6 AM CDT 09/27/2024 11:32 AM CDT Koby Joseph MD LAB BLOOD ORDERABLES Fi nal Result Performing Organization Address [facility] de Phone Number [facility] Department [place] [address] * (ABNORMAL) Immunoglobulin free light chains (09/27/2024 11:26 AM CDT) [place]/Lambda ratio BJ 2.43(H) 0.26 - 1.65 Comment: Interpretive Data The Binding Site FreeLite assay procedure was used. Results from different manufacturers or methods may not be comparable. Serial testing should be performed using the same methods and instrumentation. Current Interpretive Data was last revised on 2023. [place] free light chain BJ 4.11(H) 0.33 - 1.94 mg/dL [facility] Comment: Interpretive Data The Binding Site FreeLite assay procedure was used. Results from different manufacturers or methods may not be comparable. Serial testing should be performed using the same methods and instrumentation. Current Interpretive Data was last revised on 2023. [place] free light chain BJ 1.69 0.57 - 2.63 mg/dL [facility] Comment: Interpretive Data The Binding Site FreeLite assay procedure was used. Results from different manufacturers or methods may not be comparable. Serial testing should be performed using the same methods and instrumentation. Current Interpretive Data was last revised on 2023. Blood 09/27/2024 11:2 6 AM CDT 09/27/2024 12:21 PM CDT Koby Joseph MD LAB BLOOD ORDERABLES Fi nal Result Performing Organization Address [facility]/State/ZIP Co de Phone Number [facility] Department [place] [address] * (ABNORMAL) CBC with auto differential (09/27/2024 11:26 AM CDT) WBC 4.39 3.80 - 9.90 K/cumm Comment:Testing performed by : [facility] Heme [facility], [address] [place] [address] Hgb 13.8 13.0 - 17.5 g/dL [facility] Comment:Testing performed by : [facility], [address] [place] [address] Hct 40.3 38.9 - 50.3 % [facility] Comment:Testing performed by : [facility], [address] [place] [address] Plt 127(L) 150 - 400 K/cumm [facility] Comment:Testing performed by : [facility], [address] [place] [address] MPV 8.3 6.8 - 10.4 fL [facility] Comment:Testing performed by : [facility], [address] [place] [address] RBC 4.22(L) 4.30 - 5.80 M/cumm [facility] Comment:Testing performed by : [facility], [address] [place] [address] MCV 95.5 81.3 - 96.4 fL [facility] Comment:Testing performed by : [facility], [address] [place] [address] MCH 32.8 27.1 - 33.3 pg [facility] Comment:Testing performed by : [facility], [address] [place] [address] MCHC 34.3 32.3 - 35.7 g/dL [facility] Comment:Testing performed by : [facility], [address] [place] [address] RDW CV 15.6(H) 11.1 - 14.9 % [facility] Comment:Testing performed by : [facility], [address] [place] [phone] NRBC abs 0.00 0.00 - 0.01 K/cumm [facility] Comment:Testing performed by : [facility], [address] [place] [phone] Blood 09/27/2024 11:2 6 AM CDT 09/27/2024 11:32 AM CDT us Koby Joseph MD LAB BLOOD ORDERABLES Fi nal Result Performing Organization Address City/[facility]/ZIP Co de Phone Number [facility] Department [place] [address] * Protein electrophoresis with reflex, serum with interpretation (09/27/2024 11:26 AM CDT) Protein, sr 6.5 6.2 - 8.2 g/dL Albumin 4.1 3.2 - 5.0 g/dL [facility] Alpha-1 globulin 0.4 0.2 - 0.4 g/dL [facility] Alpha-2 globulin 0.7 0.5 - 1.0 g/dL [facility] Beta-1 globulin 0.4 0.3 - 0.6 g/dL [facility] Beta-2 globulin 0.3 0.2 - 0.6 g/dL [facility] Gamma globulin 0.7 0.5 - 1.7 g/dL [facility] SPEP interp Please see comment [facility] Comment: Possible abnormal restricted peak in gamma region Electrophoretic pattern appears different from previous sample 10/04/23 See immunotyping for further information Reviewed and signed by Jhonny Edwards MD, PhD 09/28/2024 Blood 09/27/2024 11:2 6 AM CDT 09/27/2024 12:21 PM CDT us Koby Joseph MD LAB BLOOD ORDERABLES Fi nal Result [facility] [place] [address] * Lactate dehydrogenase (LD) (09/27/2024 11:26 AM CDT) [facility] Lactate dehydrogenase (LDH) 163 100 - 250 Units/L Blood 09/27/2024 11:2 6 AM CDT 09/27/2024 11:33 AM CDT Koby Joseph MD LAB BLOOD ORDERABLES Fi nal Result Performing Organization Address City/[facility]/[place] [address] * IgA (09/27/2024 11:26 AM CDT) [facility] Immunoglobulin A 94 70 - 400 mg/dL Blood 09/27/2024 11:2 6 AM CDT 09/27/2024 11:51 AM CDT Koby Joseph MD LAB BLOOD ORDERABLES Fi nal Result Performing Organization Address City/[facility] [place] [address] * (ABNORMAL) IgM (09/27/2024 11:26 AM CDT) [facility] Immunoglobulin M <25(L) 40 - 230 mg/dL Blood 09/27/2024 11:2 6 AM CDT 09/27/2024 11:51 AM CDT Koby Joseph MD LAB BLOOD ORDERABLES Fi nal Result Performing Organization Address City/[facility] [place] [address] * (ABNORMAL) IgG (09/27/2024 11:26 AM CDT) [facility] Immunoglobulin G 662(L) 700 - 1,600 mg/dL Blood 09/27/2024 11:2 6 AM CDT 09/27/2024 11:51 AM CDT us Koby Joseph MD LAB BLOOD ORDERABLES Fi nal Result [facility] Department [place] [address] * (ABNORMAL) Comprehensive metabolic panel (09/27/2024 11:26 AM CDT) Sodium 140 135 - 145 mmol/L Potassium, pl 3.7 3.3 - 4.9 mmol/L [facility] Chloride 105 97 - 110 mmol/L [facility] CO2 25 22 - 32 mmol/L [facility] Anion gap 10 2 - 15 mmol/L [facility] BUN 12 6 - 25 mg/dL [facility] Creatinine 1.57(H) 0.80 - 1.30 mg/dL [facility] Glucose 99 70 - 199 mg/dL [facility] Comment: Interpretive Data Fasting glucose >/= 126 mg/dl is diagnostic for diabetes. Fasting is defined as no caloric intake for at least 8 hours. Fasting glucose between 100 mg/dl to 125 mg/dl is diagnostic of prediabetes. In a patient with classic symptoms of hyperglycemia or hyperglycemic crisis, a random glucose >/= 200 mg/dl is diagnostic for diabetes. In the absence of unequivocal hyperglycemia, results should be confirmed by repeat testing. The classification and Diagnosis of Diabetes Diabetes Care 202; 46: S19-S40. Current interpretive data was last revised 2022. Calcium 9.3 8.5 - 10.3 mg/dL [facility] Bilirubin, total 0.7 0.1 - 1.2 mg/dL [facility] Protein, pl 6.8 6.5 - 8.5 g/dL [facility] Albumin 4.2 3.5 - 5.0 g/dL [facility] Alk phos 103 40 - 130 Units/[facility] 28 7 - 55 Units/L [facility] AST 26 10 - 50 Units/L [facility] Blood 09/27/2024 11:2 6 AM CDT 09/27/2024 11:33 AM CDT us Koby Joseph MD LAB BLOOD ORDERABLES Fi nal Result [facility] Department [place] [address] * PET/CT FDG Skull to Thigh (09/27/2024 11:21 AM CDT) Anatomical Region Laterality Modality N/A Positron Emissio n Tomography (PET) 09/27/2024 2:53 PM CDT Impressions 09/27/2024 3:38 PM CDT 1.No FDG/PET evidence of active myelomatous disease. 2. Mesenteric stranding associated with mildly dilated loops of proximal jejunum with intense uptake adjacent to the bowel/mesentery. Findings may represent a developing complicated infectious or inflammatory enteritis, and possibly developing partial small bowel obstruction. Recommend correlation with symptoms and consider contrast-enhanced CT abdomen and pelvis with oral contrast for followup given reported history of IBD. 3. Long segment active colitis involving the sigmoid to descending colon as well as hepatic flexure. The Non Critical results were discussed with Dr. Joseph by Dr. Christina Joseph MD on 09/27/2024 2:53 PM. Dictated by: Christina Joseph MD The radiology attending physician has personally reviewed this study, and had reviewed and/or edited this written report and agrees with it. Electronically signed by: Sonia Perez M.D. Narrative 09/27/2024 3:38 PM CDT EXAMINATION: TUMOR FDG-PET/CT IMAGING DATE OF STUDY: 09/27/2024 SCANNER: [facility] Team-Match (SQ1). This is a high-resolution scanner, which can result in higher SUVs (and even detection of previously unrecognized small lesions) compared to older scanners. RADIOPHARMACEUTICAL: 7.5 mCi F-18 Fluorodeoxyglucose (FDG) i.v. Injection site: Right antecubital HISTORY: 74-year-old male with multiple myeloma status post autologous stem cell transplant and currently on maintenance Revlimid therapy The study is requested for follow-up. Subsequent treatment strategy. TECHNIQUE: The patient's fasting blood glucose level, measured by glucometer before injection of FDG, was 94 mg/dL. After intravenous administration of FDG, noncontrast CT images were obtained for attenuation correction and for fusion with emission PET images to allow for anatomical localization of PET findings. Emission PET images were then obtained. The study was interpreted on the tado workstation. The mean liver SUV (reported for water quality analyst purposes) is 3.4. The total scanned area was skull vertex to knees. Images of the body were obtained starting 50 minutes after injection of tracer. All reported SUVs are maximum SUVs, unless otherwise specified. COMPARISON: 10/02/2023 DESCRIPTORS OF LESION FDG AVIDITY: Minimal: <= blood pool Mild: > blood pool and <= liver Moderate: > liver and <= 2x SUVmax liver Moderate to marked: >2x SUVmax liver and <= 3x SUVmax liver Marked: > 3x SUVmax liver FINDINGS: No significant change in diffuse lytic lesions throughout the imaged axial skeleton, consistent with history of multiple myeloma, all of which demonstrated minimal uptake similar to blood pool. Mild uptake within the right iliac (image 267) may represent hypercellular marrow. Mesenteric stranding about the mid jejunum with prominent mesenteric nodes, with focal intense uptake in the left upper quadrant adjacent to mildly dilated small bowel loops, SUV up to 12.2. Diffuse long segment uptake throughout the colon with mucosal thickening. Additional CT findings: Status post bilateral lens replacement. Multivessel coronary artery disease. Scarring in the right upper lobe. Large hiatal hernia. Colonic diverticulosis. Long segment uptake within the colon. Mild large vessel vascular calcifications. Status post vertebral augmentation of T5, unchanged. Procedure Note Sonia Perez MD - 09/27/2024 EXAMINATION: TUMOR FDG-PET/CT IMAGING DATE OF STUDY: 09/27/2024 SCANNER: [facility] Team-Match (SQ1). This is a high-resolution scanner, which can result in higher SUVs (and even detection of previously unrecognized small lesions) compared to older scanners. RADIOPHARMACEUTICAL: 7.5 mCi F-18 Fluorodeoxyglucose (FDG) i.v. Injection site: Right antecubital HISTORY: 74-year-old male with multiple myeloma status post autologous stem cell transplant and currently on maintenance Revlimid therapy The study is requested for follow-up. Subsequent treatment strategy. TECHNIQUE: The patient's fasting blood glucose level, measured by glucometer before injection of FDG, was 94 mg/dL. After intravenous administration of FDG, noncontrast CT images were obtained for attenuation correction and for fusion with emission PET images to allow for anatomical localization of PET findings. Emission PET images were then obtained. The study was interpreted on the tado workstation. The mean liver SUV (reported for water quality analyst purposes) is 3.4. The total scanned area was skull vertex to knees. Images of the body were obtained starting 50 minutes after injection of tracer. All reported SUVs are maximum SUVs, unless otherwise specified. COMPARISON: 10/02/2023 DESCRIPTORS OF LESION FDG AVIDITY: Minimal: <= blood pool Mild: > blood pool and <= liver Moderate: > liver and <= 2x SUVmax liver Moderate to marked: >2x SUVmax liver and <= 3x SUVmax liver Marked: > 3x SUVmax liver FINDINGS: No significant change in diffuse lytic lesions throughout the imaged axial skeleton, consistent with history of multiple myeloma, all of which demonstrated minimal uptake similar to blood pool. Mild uptake within the right iliac (image 267) may represent hypercellular marrow. Mesenteric stranding about the mid jejunum with prominent mesenteric nodes, with focal intense uptake in the left upper quadrant adjacent to mildly dilated small bowel loops, SUV up to 12.2. Diffuse long segment uptake throughout the colon with mucosal thickening. Additional CT findings: Status post bilateral lens replacement. Multivessel coronary artery disease. Scarring in the right upper lobe. Large hiatal hernia. Colonic diverticulosis. Long segment uptake within the colon. Mild large vessel vascular calcifications. Status post vertebral augmentation of T5, unchanged. IMPRESSION: 1.No FDG/PET evidence of active myelomatous disease. 2. Mesenteric stranding associated with mildly dilated loops of proximal jejunum with intense uptake adjacent to the bowel/mesentery. Findings may represent a developing complicated infectious or inflammatory enteritis, and possibly developing partial small bowel obstruction. Recommend correlation with symptoms and consider contrast-enhanced CT abdomen and pelvis with oral contrast for followup given reported history of IBD. 3. Long segment active colitis involving the sigmoid to descending colon as well as hepatic flexure. The Non Critical results were discussed with Dr. Joseph by Dr. Christina Joseph MD on 09/27/2024 2:53 PM. Dictated by: Christina Joseph MD The radiology attending physician has personally reviewed this study, and had reviewed and/or edited this written report and agrees with it. Electronically signed by: Sonia Perez M.D. Koby Joseph MD IMG PET PROCEDURES Samantha l Result * Hemoglobin A1c (09/02/2019 10:59 AM CDT) Hgb A1C 4.7 4.0 - 5.6 % [facility] Estimated Average Glucose 88 mg/dL [facility] Comment: The ADA recommends reporting an estimated Average Glucose (eAG) with all Hemoglobin A1c results using the equation derived from a study of 507 normal and diabetic adults. Minority populations were underrepresented and children were not included. (Diabetes Care 31:0238-8657, 2008). The eAG is not equivalent to a fasting glucose. Blood specimen (specimen) 09/02/2019 10:59 AM CDT 09/02/2019 11:05 AM CDT Koby Joseph MD LAB BLOOD ORDERABLES Fi nal Result [facility] Department [place] [address] * (ABNORMAL) Lipid panel (09/02/2019 10:56 AM CDT) Cholesterol 131 30 - 199 mg/dL [facility] Comment: Interpretive Data Ages < or = 19 years Acceptable: <170 mg/dL Borderline high: 170-199 mg/dL High: >or= 200 mg/dL Ages > or = 20 years Desirable: <200 mg/dL Borderline high: 200-239 mg/dL High: >or= 240 mg/dL Literature References: 1. Expert Panel on Integrated Guidelines for Cardiovascular Health and Risk Reduction in Children and Adolescents. Pediatrics 2011;128:S213 2. NCEP Expert Panel. Circulation 2004;110:227 Current Interpretive Data was last revised on 2017. Triglycerides 202(H) <=149 mg/dL [facility] Comment: Interpretive Data Ages < or = 9 years Acceptable: <75 mg/dL Borderline high: 75-99 mg/dL High: >or= 100 mg/dL Ages 10 to 20 years Acceptable: <90 mg/dL Borderline high: 90-129 mg/dL High: >or= 130 mg/dL Ages > or = 20 years Desirable: <150 mg/dL Borderline high: 150-199 mg/dL High: 200-499 mg/dL Very high: >or= 499 mg/dL Literature References: 1. Expert Panel on Integrated Guidelines for Cardiovascular Health and Risk Reduction in Children and Adolescents. Pediatrics 2011;128:S213 2. NCEP Expert Panel. Circulation 2004;110:227 Current Interpretive Data was last revised on 2017. HDL 47 >=40 mg/dL [facility] Comment: Interpretive Data Ages < or = 19 years Acceptable: >45 mg/dL Borderline low: 40-45 mg/dL Low: <40 mg/dL Ages > or = 20 years Desirable: >or= 60 mg/dL Low: <40 mg/dL Literature References: 1. Expert Panel on Integrated Guidelines for Cardiovascular Health and Risk Reduction in Children and Adolescents. Pediatrics 2011;128:S213 2. NCEP Expert Panel. Circulation 2004;110:227 Current Interpretive Data was last revised on 2017. LDL, calculated 44 <=129 mg/dL [facility] Comment: Interpretive Data Ages < or = 19 years Acceptable: <110 mg/dL Borderline high: 110-129 mg/dL High: >or= 130 mg/dL Ages > or = 20 years Optimal: <100 mg/dL Near optimal: 100-129 mg/dL Borderline high: 130-159 mg/dL High: >160 mg/dL Literature References: 1. Expert Panel on Integrated Guidelines for Cardiovascular Health and Risk Reduction in Children and Adolescents. Pediatrics 2011;128:S213 2. NCEP Expert Panel. Circulation 2004;110:227 Current Interpretive Data was last revised on 2017. Non-HDL Cholesterol 84 mg/dL [facility] Comment: Interpretive Data Ages < or = 19 years Acceptable: <120 mg/dL Borderline high: 120-144 mg/dL High: >145 mg/dL Ages > or = 20 years When triglycerides are >200 mg/dL, Non-HDL cholesterol is a secondary target of therapy with treatment goals that are 30 mg/dL greater than the LDL cholesterol target. Literature References: 1. Expert Panel on Integrated Guidelines for Cardiovascular Health and Risk Reduction in Children and Adolescents. Pediatrics 2011;128:S213 2. NCEP Expert Panel. Circulation 2004;110:227 Current Interpretive Data was last revised on 2017. Chol/HDL ratio 3 [facility] Blood specimen (specimen) 09/02/2019 10:56 AM CDT 09/02/2019 11:09 AM CDT us Koby Joseph MD LAB BLOOD ORDERABLES Fi nal Result Performing Organization Address [facility] de Phone Number [facility] Department of [employer] [place] [address] * PSA diagnostic (03/09/2019 12:45 PM PRODUCTION LEADER) PSA-Total 1.87 <=5.40 ng/mL [facility] Comment: Interpretive Data AGE SEX REFERENCE INTERVAL 0 minutes-150 years Female None 0 minutes-49 years Male None 50-59 years Male 0-3.90 60-69 years Male 0-5.40 70-79 years Male 0-6.20 80-150 years Male 0-6.20 Current interpretive data last revised 2017. Blood specimen (specimen) 03/09/2019 12:45 PM PRODUCTION LEADER 03/09/2019 1:57 PM PRODUCTION LEADER us Yared Walter MD LAB BLOOD ORDERABLES F inal Result Performing Organization Address [facility] Co de Phone Number [facility] Department [place] [address] from Last 3 Months or Most Recently Relevant to Health Maintenance Insurance [employer] MEDICARE [facility] [employer] MEDICARE HMO/PPO MEDICARE [facility] MEDICARE HMO/PPO [employer] MEDICARE Advance Directives For more information, please contact: [phone] * Full Code (Latest Code Status on File) Date Activated Date Inactivated Comments 10/28/2019 12:29 PM 10/28/2019 5:22 PM * Full Code Date Activated Date Inactivated Comments 10/03/2019 7:54 PM 10/22/2019 3:40 PM * Full Code Date Activated Date Inactivated Comments 09/26/2019 10:45 AM 09/26/2019 5:10 PM * Full Code Date Activated Date Inactivated Comments 04/01/2019 9:35 AM 04/01/2019 2:39 PM Care Teams Tunnel Inspector Relationship Specialty Start Date End Date Brook Walton MD [address] [place], [place] [id number] PCP - General Internal Medicine 02/14/19 Koby Joseph MD [address] [place] [address] Medical Oncologist/Donor Services Team Leader Medical Oncology 08/31/19 Roddy Marroquin MD [address] [place] [address] Referring Physician Hematology 09/23/19 Yared Walter MD [address] [place] [address] Surgeon Orthopedic Surgery 09/23/19 Steven Torres MD [address] [address] Referring Physician Gastroenterology 09/27/24
--- OUTSIDE RECORDS SUMMARY | 2024-11-02 11:01 | XMS_ITS | Encounter Summary ---
Author Organization [facility] Address [address] [place] [address] Phone Care Team Providers Care Flat Sorter Processor Name Role Phone Brook Walton MD Primary Care Provider + [phone] Koby Joseph MD Unavailable [phone] Roddy Marroquin MD Unavailable [phone] Yared Walter MD Unavailable [phone] Steven Torres MD Unavailable [phone] Encounter Details Date Type Department Care Team (Latest Contact Info) Description 08/09/2020 Orders Only [facility] Scanning, Provider Social History Tobacco Use [...] Priority Date/Time Associated Diagnosis Comments SCAN - LABS 08/09/2020 documented in this encounter Results * SCAN - LABS (08/09/2020) us Provider Scanning Final Result documented in this encounter Visit Diagnoses Not on filedocumented in this encounter Care Teams Flat Sorter Processor Relationship Specialty Start Date End Date Brook Walton MD [address] [place] [address] PCP - General Internal Medicine 02/14/19 Koby Joseph MD [address] [place] [address] Medical Oncologist/Industrial Electrician Medical Oncology 08/31/19 Roddy Marroquin MD [address] [place] [address] Referring Physician Hematology 09/23/19 Yared Walter MD [address] [place] [address] Surgeon Orthopedic Surgery 09/23/19 Steven Torres MD [address] [address] Referring Physician Gastroenterology 09/27/24 documented as of this encounter
--- OUTSIDE RECORDS SUMMARY | 2024-11-02 11:01 | XMS_ITS | Encounter Summary ---
Author Organization [facility] Address [address] [place] [address] Phone Care Team Providers Care Home Organizer Name Role Phone Brook Walton MD Primary Care Provider + [phone] Ramon Cohn MD Unavailable Koby Joseph MD Unavailable [phone] Roddy Marroquin MD Unavailable [phone] Roddy Marroquin MD Unavailable [phone] Yared Walter MD Unavailable [phone] Steven Torres MD Unavailable [phone] Encounter Details Date Type Department Care Team (Latest Contact Info) Description 05/03/2019 Orders Only [facility] Scanning, Provider [...] on file Sexual Orientation Not on file COVID-19 Exposure Response Date Recorded In the last month, have you been in contact with someone who was confirmed or suspected to have Coronavirus / COVID-19? No / Unsure 2019 9:58 AM CDT documented as of this encounter Plan of Treatment Not on file documented as of this encounter Procedures Procedure Name Priority Date/Time Associated Diagnosis Comments SCAN - RADIOLOGY/IMAGING 05/03/2019 documented in this encounter Results * SCAN - RADIOLOGY/IMAGING (05/03/2019) Anatomical Region Laterality Modality Other us Provider Scanning Final Result documented in this encounter Visit Diagnoses Not on filedocumented in this encounter Additional Health Concerns Infection Onset Date Last Indicated Resolved Time COVID: Suspected 09/28/2019 09/30/2019 09/30/2019 1:27 PM CDT Respiratory Infection (DENISE), contact + droplet Comment:Automatically added due to negative COVID-19 result. Patient classified as Low Risk for COVID-19 and has one negative COVID-19 test. Patient meets criteria for COVID-19 isolation discontinuation 09/30/2019 09/30/2019 10/06/2019 11:09 AM CDT documented as of this encounter Care Teams Home Organizer Relationship Specialty Start Date End Date Brook Walton MD [address] [place], [place] [id number] PCP - General Internal Medicine 02/14/19 Ramon Cohn MD [address] [place] [address] Medical Oncologist/Heart Doctor Medical Oncology 04/19/19 08/30/19 Koby Joseph MD [address] [place], [place] [id number] Medical Oncologist/Heart Doctor Medical Oncology 08/31/19 Roddy Marroquin MD [address] [place] [id number] Referring Physician Hematology 09/23/19 09/23/19 Roddy Marroquin MD [address] [place] [address] Referring Physician Hematology 09/23/19 Yared Walter MD [address] [place] [address] Surgeon Orthopedic Surgery 09/23/19 Steven Torres MD [address] [place] [address] Referring Physician Gastroenterology 09/27/24 documented as of this encounter
--- OUTSIDE RECORDS SUMMARY | 2024-11-02 11:01 | XMS_ITS | Encounter Summary ---
Author Organization [facility] Address [address] [place] [address] Phone Care Team Providers Care Silverware Buffing Machine Operator Name Role Phone Brook Walton MD Primary Care Provider + [phone] Ramon Cohn MD Unavailable Koby Joseph MD Unavailable [phone] Roddy Marroquin MD Unavailable [phone] Roddy Marroquin MD Unavailable [phone] Yared Walter MD Unavailable [phone] Steven Torres MD Unavailable [phone] Reason for Referral * Consultation (Routine) - Closed Specialty Diagnoses / Procedures Referred By Contac t Referred To Contact Oncology Diagnoses Multiple myeloma Koby Joseph MD [address] [place] [address] Phone: tel: fax: [facility] Pheresis [address] [facility] [address], [place] [address] Phone: tel: fax: Referral ID Status Reason Start Date Expiration Date V isits Requested Visits Authorized [id number] Closed Specialty Services Required 08/26/2019 03/06/2021 1 1 Question Answer Select procedure. (For questions, please call Pheresis center): Pre-Pheresis Assessment Pre-Pheresis Assessment: Assessment only Please select the performing region: [facility] [[id number]] Please select the performing department: [facility] PHERESIS [[id number]] # of visits: 1 Encounter Details Date Type Department Care Team (Late st Contact Info) Description 08/26/2019 Orders Only [facility] Bone Marrow Transplant [address] [facility] 7th Floor, [place] [address] Koby Joseph MD [address] DIV IM BONE MARROW TRANSPLANT, [address] [place] [address] Multiple myeloma (HCC) (Primary Dx) Social History Tobacco Use Types Packs/Day Years [...] on file documented as of this encounter Progress Notes * Vale Rose - 08/26/2019 11:47 AM CDT auto documented in this encounter Plan of Treatment Scheduled Referrals Name Type Priority Associated Diagnoses Order Schedule Ambulatory referral to Pheresis Outpatient Referral Routine Multiple myeloma (HCC) Expected: 09/02/2019 (Approximate), Expires: 08/25/2020 documented as of this encounter Results * Type and screen (09/02/2019 10:59 AM CDT) Mt, indirect Negative CERN[facility] ABO Rh O Positive [facility] Blood specimen (specimen) 09/02/2019 10:59 AM CDT 09/02/2019 11:10 AM CDT Narrative FILI [facility] - 09/02/2019 12:12 PM CDT Has the patient had Daratumumab or Isatuximab in the past 6 months?->Unknown us Koby Joseph MD LAB BLOOD BANK TEST ORD ERABLES Final Result Performing Organization Address [facility] de Phone Number [facility] [address] * Sickle cell screen (09/02/2019 10:59 AM CDT) [facility] Sickle cell, solubility Negative Negative [facility] Comment: Interpretive Data A positive sickle cell screening test is not sufficient to diagnose the presence of hemoglobin S since other rare hemoglobins may produce a positive turbidity test and false positive results may occur in the presence of dysglobulinemias. Recommend confirmation of a positive test result by ordering hemoglobin analysis performed by capillary electrophoresis if clinically indicated. Current interpretive data was last revised on 2019. Blood specimen (specimen) 09/02/2019 10:59 AM CDT 09/02/2019 11:05 AM CDT Koby Joseph MD LAB BLOOD ORDERABLES Fi nal Result Performing Organization Address [facility] [place] [address] * aPTT (09/02/2019 10:59 AM CDT) [facility] aPTT 26 25 - 37 sec [facility] Comment: Interpretive data Heparin therapeutic range: 60-90 seconds Range based on correlation with therapeutic heparin activity range of 0.3-0.7 units/ml. Current interpretive data was last revised on 2019. Blood specimen (specimen) 09/02/2019 10:59 AM CDT 09/02/2019 11:05 AM CDT Koby Joseph MD LAB BLOOD ORDERABLES Fi nal Result Performing Organization Address [facility] [place] [address] * Protime-INR (09/02/2019 10:59 AM CDT) PT 12.1 8.6 - 13.0 sec [facility] INR 1.1 0.8 - 1.2 [facility] Comment: Interpretive data Oral anticoagulant therapeutic ranges: Venous thromboembolism prophylaxis or treatment: 2.0-3.0 CARDIOLOGY Standard range: 2.0-3.0 High-intensity range: 2.5-3.5 Refer to indication-specific guidelines for appropriate target ranges for prosthetic heart valve replacement. Current interpretive data was last revised on 2019. Blood specimen (specimen) 09/02/2019 10:59 AM CDT 09/02/2019 11:05 AM CDT Koby Joseph MD LAB BLOOD ORDERABLES Fi nal Result Performing Organization Address [facility] Co de Phone Number [facility] [place] [address] * HSV 2 IgG Antibody Blood (09/02/2019 10:59 AM CDT) [facility] HSV 2 IgG Nonreactive Nonreactive [facility] Comment: Interpretive Data 1. Negative: No detectable IgG antibody to HSV-2. 2. Equivocal: Presence or absence of detectable antibodies to HSV-2 cannot be determined and the test should be repeated. 3. 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 Current interpretive data was last revised on 2016. Blood specimen (specimen) 09/02/2019 10:59 AM CDT 09/02/2019 11:05 AM CDT Koby Joseph MD LAB MICROBIOLOGY - GENE RAL ORDERABLES Final Result Performing Organization Address [facility] Co de Phone Number [facility] [place] [address] * HSV 1 IgG Antibody Blood (09/02/2019 10:59 AM CDT) [facility] HSV 1 IgG Reactive Nonreactive [facility] Comment: Interpretive Data 1. Nonreactive: No detectable IgG antibody to HSV-1. 2. Equivocal: Presence or absence of detectable antibodies to HSV-1 cannot be determined and the test should be repeated. 3. Reactive: Indicates presence of detectable IgG antibody to HSV-1. Current interpretive data was last revised on 2016. Blood specimen (specimen) 09/02/2019 10:59 AM CDT 09/02/2019 11:05 AM CDT Koby Joseph MD LAB MICROBIOLOGY - GENE RAL ORDERABLES Final Result Performing Organization Address [facility] [place] [address] * Hemoglobin A1c (09/02/2019 10:59 AM CDT) [facility] Hgb A1C 4.7 4.0 - 5.6 % [facility] Estimated Average Glucose 88 mg/dL [facility] Comment: The ADA recommends reporting an estimated Average Glucose (eAG) with all Hemoglobin A1c results using the equation derived from a study of 507 normal and diabetic adults. Minority populations were underrepresented and children were not included. (Diabetes Care 31:9564-2315, 2008). The eAG is not equivalent to a fasting glucose. Blood specimen (specimen) 09/02/2019 10:59 AM CDT 09/02/2019 11:05 AM CDT Koby Joseph MD LAB BLOOD ORDERABLES Fi nal Result Performing Organization Address [facility] de Phone Number [facility] [address] * (ABNORMAL) BMT donor evaluation (09/02/2019 10:59 AM CDT) [facility] Hep B surf Ag, donor Negative Negative [facility] Hep B core Ab, donor Negative Negative [facility] Hep C Ab, donor Negative Negative [facility] HIV 1-2 Ab, donor Negative Negative [facility] HTLV I/II Ab, donor Negative Negative [facility] Syphilis testing, donor Negative Negative [facility] HIV QUE, donor Negative Negative [facility] HCV QUE, donor Negative Negative [facility] HBV QUE, donor Negative Negative [facility] WNV QUE, donor Not Tested Negative [facility] Comment:WNV was unable to be tested due to sample being quantity insufficient. CMV testing, donor Positive(A) Negative [facility] Comment: Interpretive Data Testing performed by [facility] [place] [address] CLIA [id number] Panel consists of testing for Hepatitis B, Hepatitis C, HIV, HTLV, Syphilis, CMV, West Nile Virus and Chaga. Current interpretive data was last revised on 19. Chagas testing, donor Negative Negative [facility] Blood specimen (specimen) 09/02/2019 10:59 AM CDT 09/02/2019 11:24 AM CDT Koby Joseph MD LAB BLOOD ORDERABLES Fi nal Result Performing Organization Address City/[facility]/ZIP Co de Phone Number [facility] [id number] * Uric acid (09/02/2019 10:56 AM CDT) Uric acid 4.5 3.0 - 8.0 mg/dL [facility] Comment:Testing performed by : [facility], [address] [place] [phone] Blood specimen (specimen) 09/02/2019 10:56 AM CDT 09/02/2019 10:59 AM CDT Koby Joseph MD LAB BLOOD ORDERABLES Fi nal Result Performing Organization Address City/[facility]/ZIP Co de Phone Number [facility] [place] [address] * Magnesium (09/02/2019 10:56 AM CDT) Magnesium 2.1 1.4 - 2.5 mg/dL [facility] Comment:Testing performed by : [facility], [address] [place] [phone] Blood specimen (specimen) 09/02/2019 10:56 AM CDT 09/02/2019 10:59 AM CDT us Koby Joseph MD LAB BLOOD ORDERABLES Fi nal Result [facility] [place] [address] * (ABNORMAL) Lipid panel (09/02/2019 10:56 AM CDT) Cholesterol 131 30 - 199 mg/dL [facility] Comment: Interpretive Data Ages < or = [...] revised on 2017. Triglycerides 202(H) <=149 mg/dL [facility] Comment: Interpretive Data Ages < or = [...] on 2017. HDL 47 >=40 mg/dL [facility] Comment: Interpretive Data Ages < or = [...] on 2017. LDL, calculated 44 <=129 mg/dL [facility] Comment: Interpretive Data Ages < or = [...] revised on 2017. Non-HDL Cholesterol 84 mg/dL [facility] Comment: Interpretive Data Ages < or = [...] last revised on 2017. Chol/HDL ratio [address] [facility] Blood specimen (specimen) 09/02/2019 10:56 AM CDT 09/02/2019 11:09 AM CDT us Koby Joseph MD LAB BLOOD ORDERABLES Fi nal Result [facility] [place] [address] * Lactate dehydrogenase (LD) (09/02/2019 10:56 AM CDT) Lactate dehydrogenase (LDH) 173 100 - 250 Units/L [facility] Comment:Testing performed by : [facility], [address] [place] [phone] Blood specimen (specimen) 09/02/2019 10:56 AM CDT 09/02/2019 10:59 AM CDT us Koby Joseph MD LAB BLOOD ORDERABLES Fi nal Result [facility] Department [place] [address] * (ABNORMAL) Comprehensive metabolic panel (09/02/2019 10:56 AM CDT) Sodium 142 135 - 145 mmol/L [facility] Comment:Testing performed by : [facility], [address] [place] [phone] Potassium, pl 3.5 3.3 - 4.9 mmol/L [facility] Comment:Testing performed by : [facility], [address] [place] [address] Chloride 105 97 - 110 mmol/L [facility] Comment:Testing performed by : [facility], [address] [place] [phone] CO2 27 22 - 32 mmol/L [facility] Comment:Testing performed by : [facility], [address] [place] [phone] Anion gap 10 2 - 15 mmol/L [facility] Comment:Testing performed by : [facility], [address] [place] [address] BUN 16 8 - 25 mg/dL [facility] Comment:Testing performed by : [facility], [address] [place] [phone] Creatinine 1.10 0.80 - 1.30 mg/dL [facility] Comment:Testing performed by : [facility], [address] [place] [address] Glucose 173 70 - 199 mg/dL [facility] Comment: Interpretive Data Fasting glucose >/= 126 [...] classification and Diagnosis of Diabetes Diabetes Care 2017;40 (Suppl. 1):S11. Current interpretive data was last revised 2016. Testing performed by: [facility], [address] [place], [place] [address] Calcium 9.3 8.5 - 10.3 mg/dL [facility] Comment:Testing performed by : [address] Bilirubin, total 0.8 0.1 - 1.2 mg/dL [facility] Comment:Testing performed by : [address] [address] Protein, pl 6.0(L) 6.5 - 8.5 g/dL [facility] Comment:Testing performed by : [facility], [address] [place] [address] Albumin 4.3 3.5 - 5.0 g/dL [facility] Comment:Testing performed by : [address] [address] Alk phos 78 40 - 130 Units/L [facility] Comment:Testing performed by : [address] [address] ALT 33 7 - 55 Units/L [facility] Comment:Testing performed by : [address] [address] AST 14 10 - 50 Units/L [facility] Comment:Testing performed by : [address] [address] Blood specimen (specimen) 09/02/2019 10:56 AM CDT 09/02/2019 10:59 AM CDT us Koby Joseph MD LAB BLOOD ORDERABLES Fi nal Result [facility] [place] [address] * (ABNORMAL) CBC with auto differential (09/02/2019 10:56 AM CDT) WBC 5.8 3.8 - 9.8 K/cumm [facility] Comment:Testing performed by : [facility], [address] [place] [address] Hgb 12.9(L) 13.8 - 17.2 g/dL [facility] Comment:Testing performed by : [facility], [address] [place] [phone] Hct 38.9(L) 40.7 - 50.3 % [facility] Comment:Testing performed by : [address] [address] Plt 109(L) 140 - 440 K/cumm [facility] Comment:Testing performed by : [address] [address] MPV 10.5(H) 6.8 - 10.4 fL [facility] Comment:Testing performed by : [address] [address] RBC 4.20(L) 4.50 - 5.70 M/cumm [facility] Comment:Testing performed by : [address] [address] MCV 92.8 80.0 - 97.6 fL [facility] Comment:Testing performed by : [address] [address] MCH 30.8 26.7 - 33.7 pg [facility] Comment:Testing performed by : [address] [address] MCHC 33.2 32.7 - 35.5 g/dL [facility] Comment:Testing performed by : [address] [address] RDW CV 16.3(H) 11.8 - 14.6 % [facility] Comment:Testing performed by : [facility], [address] [place] [address] NRBC abs 0.01 0.00 - 0.01 K/cumm [facility] Comment:Testing performed by : [facility], [address] [place] [phone] Blood specimen (specimen) 09/02/2019 10:56 AM CDT 09/02/2019 10:59 AM CDT us Koby Joseph MD LAB BLOOD ORDERABLES Fi nal Result [facility] [place] [address] documented in this encounter Visit Diagnoses Diagnosis Multiple myeloma- Primary Multiple myeloma, without mention of having achieved remission Multiple myeloma Multiple myeloma, without mention of having achieved remission documented in this encounter Additional Health Concerns Infection [...] documented as of this encounter Care Teams Silverware Buffing Machine Operator Relationship Specialty Start Date End Date Brook Walton MD [address] [place] [address] PCP - General Internal Medicine 02/14/19 Ramon Cohn MD [address] [place] [address] Medical Oncologist/Wharf Laborer Medical Oncology 04/19/19 08/30/19 Koby Joseph MD [address] [place] [address] Medical Oncologist/Wharf Laborer Medical Oncology 08/31/19 Roddy Marroquin MD [address] [place] [address] Referring Physician Hematology 09/23/19 09/23/19 Roddy Marroquin MD [address] [place] [address] Referring Physician Hematology 09/23/19 Yared Walter MD [address] [place] [address] Surgeon Orthopedic Surgery 09/23/19 Steven Torres MD [address] [place] [address] Referring Physician Gastroenterology 09/27/24 documented as of this encounter
--- OUTSIDE RECORDS SUMMARY | 2024-11-02 11:01 | XMS_ITS | Encounter Summary ---
Author Organization [facility] Address [address] [place] [address] Phone Care Team Providers Care Air Dispatcher Name Role Phone Brook Walton MD Primary Care Provider + [phone] Koby Joseph MD Unavailable [phone] Roddy Marroquin MD Unavailable [phone] Yared Walter MD Unavailable [phone] Steven Torres MD Unavailable [phone] Encounter Details Date Type Department Care Team (Latest Contact Info) Description 09/27/2024 Results Follow-Up [facility] Bone Marrow Transplant [address] [facility] [address] [place] [address] Ofelia Saavedra PA [address] [place] [address] Immunoglobulin free light chains Social History Tobacco Use Types Packs/Day Years [...] on file documented as of this encounter Visit Diagnoses Not on filedocumented in this encounter Care Teams Air Dispatcher Relationship Specialty Start Date End Date Brook Walton MD [address] [place] [address] PCP - General Internal Medicine 02/14/19 Koby Joseph MD [address] [place] [address] Medical Oncologist/Theatrical Variety Agent Medical Oncology 08/31/19 Roddy Marroquin MD [address] [place] [address] Referring Physician Hematology 09/23/19 Yared Walter MD [address] [place] [address] Surgeon Orthopedic Surgery 09/23/19 Steven Torres MD [address] [address] Referring Physician Gastroenterology 09/27/24 documented as of this encounter
--- OUTSIDE RECORDS SUMMARY | 2024-11-02 11:01 | XMS_ITS | Encounter Summary ---
Author Organization [facility] Address [address] [place] [address] Phone Care Team Providers Care Mathematical Technician Name Role Phone Reji Brandt MD Primary Care Provider [phone] Brook Walton MD Primary Care Provider [phone] Ramon Cohn MD Unavailable Koby Joseph MD Unavailable [phone] Roddy Marroquin MD Unavailable [phone] Roddy Marroquin MD Unavailable [phone] Yared Walter MD Unavailable [phone] Steven Torres MD Unavailable [phone] Encounter Details Date Type Department Care Team (Latest Contact Info) Description 01/31/2019 Orders Only [facility] Scanning, Provider Social History Tobacco Use Types Packs/Day Years Used Date Smoking Tobacco: Never Assessed Sex and Gender Information Value Date Recorded Sex Assigned at Not on file Legal Sex Male 2:03 PM CDT Gender Identity Not on file Sexual Orientation Not on file documented as of this encounter Plan of Treatment Not on file documented as of this encounter Procedures Procedure Name Priority Date/Time Associated Diagnosis Comments SCAN - RADIOLOGY/IMAGING 01/31/2019 documented in this encounter Results * SCAN - RADIOLOGY/IMAGING (01/31/2019) Anatomical Region Laterality Modality Other us Provider [...] documented as of this encounter Care Teams Mathematical Technician Relationship Specialty Start Date End Date Reji Brandt MD PCP - General 10/23/16 02/13/19 Brook Walton MD [address] [place], [place] [address] PCP - General Internal Medicine 02/14/19 Ramon Cohn MD [address] [place] [address] Medical Oncologist/Jewel Bearing [facility] Medical Oncology 04/19/19 08/30/19 Koby Joseph MD [address] [place], [place] [address] Medical Oncologist/Jewel Bearing [facility] Medical Oncology 08/31/19 Roddy Marroquin MD [address] [place] [address] Referring Physician Hematology 09/23/19 09/23/19 Roddy Marroquin MD [address] [place] [address] Referring Physician Hematology 09/23/19 Yared Walter MD [address] [place] [address] Surgeon Orthopedic Surgery 09/23/19 Steven Torres MD [address] [place] [address] Referring Physician Gastroenterology 09/27/24 documented as of this encounter
--- OUTSIDE RECORDS SUMMARY | 2024-11-02 11:01 | XMS_ITS | Encounter Summary ---
Author Organization [facility] Healthcare Address [address] [place] [address] Care Team Providers Care Dirt Bike Mechanic Name Role Phone Brook Walton MD Primary Care Provider + [phone] Koby Joseph MD Unavailable [phone] Roddy Marroquin MD Unavailable [phone] Yared Walter MD Unavailable [phone] Steven Torres MD Unavailable [phone] Encounter Details Date Type Department Care Team (Late st Contact Info) Description 10/03/2020 Telephone [facility] ([facility]) [address] [place] [address] Familia Duffy RN Social History Tobacco Use Types Packs/Day Years [...] on filedocumented in this encounter Care Teams Dirt Bike Mechanic Relationship Specialty Start Date End Date Brook Walton MD [address] [place] [address] PCP - General Internal Medicine 02/14/19 Koby Joseph MD [address] [place] [address] Medical Oncologist/Paper Reclaiming Machine Operator Medical Oncology 08/31/19 Roddy Marroquin MD [address] [place] [address] Referring Physician Hematology 09/23/19 Yared Walter MD [address] [place] [address] Surgeon Orthopedic Surgery 09/23/19 Steven Torres MD [address] [place] [address] Referring Physician Gastroenterology 09/27/24 documented as of this encounter
--- OUTSIDE RECORDS SUMMARY | 2024-11-02 11:01 | XMS_ITS | Encounter Summary ---
Author Organization [facility] Healthcare Address [address] [place] [address] Care Team Providers Care Filenet Admin Name Role Phone Brook Walton MD Primary Care Provider + [phone] Koby Joseph MD Unavailable [phone] Roddy Marroquin MD Unavailable [phone] Roddy Marroquin MD Unavailable [phone] Yared Walter MD Unavailable [phone] Steven Torres MD Unavailable [phone] Encounter Details Date Type Department Care Team (Late st Contact Info) Description 08/31/2019 Telephone [facility] [address] [place] [address] Lius Owens, RT Social History Tobacco Use Types Packs/Day Years [...] documented as of this encounter Care Teams Filenet Admin Relationship Specialty Start Date End Date Brook Walton MD [address] [place] [address] PCP - General Internal Medicine 02/14/19 Koby Joseph MD [address] [place] [address] Medical Oncologist/Safety Clothing And Equipment Developer Medical Oncology 08/31/19 Roddy Marroquin MD [address] [place] [address] Referring Physician Hematology 09/23/19 09/23/19 Roddy Marroquin MD [address] [place] [address] Referring Physician Hematology 09/23/19 Yared Walter MD [address] [place] [address] Surgeon Orthopedic Surgery 09/23/19 Steven Torres MD [address] [place] [address] Referring Physician Gastroenterology 09/27/24 documented as of this encounter
--- OUTSIDE RECORDS SUMMARY | 2024-11-02 11:01 | XMS_ITS | Encounter Summary ---
Author Organization [facility] Address [address] [place] [address] Phone Care Team Providers Care Senior Editor Name Role Phone Brook Walton MD Primary Care Provider + [phone] Koby Joseph MD Unavailable [phone] Roddy Marroquin MD Unavailable [phone] Yared Walter MD Unavailable [phone] Steven Torres MD Unavailable [phone] Encounter Details Date Type Department Care Team (Latest Contact Info) Description 09/08/2020 Orders Only [facility] Scanning, Provider [...] Date/Time Associated Diagnosis Comments SCAN - RADIOLOGY/IMAGING 09/08/2020 documented in this encounter Results * SCAN - RADIOLOGY/IMAGING (09/08/2020) Anatomical Region Laterality Modality Other us Provider Scanning Edited Result - Final documented in this encounter Visit Diagnoses Not on filedocumented in this encounter Care Teams Senior Editor Relationship Specialty Start Date End Date Brook Walton MD [address] [place] [address] PCP - General Internal Medicine 02/14/19 Koby Joseph MD [address] [place] [address] Medical Oncologist/Yarder Engineer Medical Oncology 08/31/19 Roddy Marroquin MD [address] [place] [id number] Referring Physician Hematology 09/23/19 Yared Walter MD [address] [place] [id number] Surgeon Orthopedic Surgery 09/23/19 Steven Torres MD [address] [address] Referring Physician Gastroenterology 09/27/24 documented as of this encounter
[2024-11-02 11:04] LABS: NT Pro B Type Natriuretic Pept 501 pg/mL (19.9-100)
[2024-11-02 11:12] LABS: Free T4 Free Thyroxine 1.25 ng/dL (0.78-2.19)
[2024-11-02 11:25] LABS: Thyroid Stimulating Hormone 2.370 uIU/mL (0.465-4.680)
[2024-11-02 12:10] LABS: Ferritin 78.00 ng/mL (11.1-264)
== END 2024-11-02 09:51 | disposition home or self-care (01) ==
LOC: CHSLAB 09:56
PROVIDERS: PCP Internal Medicine; Visit Provider Internal Medicine
DX: D64.9 Anemia, unspecified (principal); E78.2 Mixed hyperlipidemia; I48.0 Paroxysmal atrial fibrillation; G62.9 Polyneuropathy, unspecified; N18.32 Chronic kidney disease, stage 3b; I50.9 Heart failure, unspecified; E11.22 Type 2 diabetes mellitus with diabetic chronic kidney disease; I13.0 Hypertensive heart and chronic kidney disease with heart failure and stage 1 through stage 4 chronic kidney disease, or unspecified chronic kidney disease
CPT/HCPCS: 36415; 80053; 80061; 81003; 82043; 82550; 82728; 83036; 83540; 83735; 83880; 84439; 84443; 85027